=== PATIENT | female | born 1955 | race Caucasian/White ===

== ENCOUNTER 2019-11-19 17:50 | Emergency (ER) | payer OTHER ==
[~2019-11-19] VITALS: Ht 167.6 cm; Wt 54.0 kg
--- NOTE | 2019-11-19 17:50 | NUR ---
"Patient under investigation for COVID-19" protocol observed for this patient 08/08 patient came from [facility].
--- NOTE | 2019-11-19 18:23 | NUR ---
1823pm: [place] assisted living home staff Maritza notified re: list of patient's home meds. Maritza said that they will fax the list of home medicines to [facility] ER department.
--- NOTE | 2019-11-19 18:51 | NUR ---
Dr [email or web address], MSE in progress
[2019-11-19] MEDS ORDERED: MORPHINE SULFATE 4 MG/1 ML DISP.SYRIN IV ONE (19:00)
[2019-11-19] MEDS ORDERED: methylPREDNISolone SOD SUCC 125 MG/2 ML VIAL IV ONE (19:00)
[2019-11-19] MEDS ORDERED: ONDANSETRON 4 MG/2 ML VIAL IV ONE (19:00)
[2019-11-19] MEDS ORDERED: ONDANSETRON 4 MG/2 ML VIAL ONE (19:09)
[2019-11-19] MEDS ORDERED: methylPREDNISolone SOD SUCC 125 MG/2 ML VIAL ONE (19:09)
[2019-11-19] MEDS ORDERED: MORPHINE SULFATE 4 MG/1 ML DISP.SYRIN ONE (19:09)
--- NOTE | 2019-11-19 20:02 | NUR ---
Spoke with Ml from [facility] with ETA of 2100. Patient made aware. no further concerns at this time
--- NOTE | 2019-11-19 21:15 | NUR ---
Patient discharged to Assisted living facility in stable condition. Written and verbal after care instructions given. Patient verbalizes understanding of instructions. Stressed follow up or return to ER for worsening s/s. Patient A&O x4. Patient able to ambulate to [facility]
--- NOTE | 2019-11-19 21:15 | NUR ---
IV removed. Catheter intact and site benign. Pressure and 4x4 gauze applied to site. No bleeding noted.
[2019-11-19 21:19] VITALS: BP 132/83
== END 2019-11-19 21:15 ==
LOC: ER 17:50
DX: G35 Multiple sclerosis (principal); G89.29 Other chronic pain; R51 Headache; M06.9 Rheumatoid arthritis, unspecified; M19.90 Unspecified osteoarthritis, unspecified site; H54.8 Legal blindness, as defined in USA
CPT/HCPCS: 96374; 96375; 99284; J2270; J2405; J2930; A4663

== ENCOUNTER 2021-12-22 22:33 | Emergency (ER) | payer OTHER ==
[~2021-12-22] VITALS: Ht 167.6 cm; Wt 59.4 kg
[2021-12-23] MEDS ORDERED: MORPHINE SULFATE 4 MG/1 ML DISP.SYRIN ONE ×2 (00:58→02:13)
[2021-12-23] MEDS ORDERED: MORPHINE SULFATE 2 MG/1 ML DISP.SYRIN ONE ×2 (00:59→02:13)
[2021-12-23] MEDS ORDERED: MORPHINE SULFATE 10 MG/1 ML DISP.SYRIN IV ONE (01:00)
[2021-12-23] MEDS ORDERED: methylPREDNISolone SOD SUCC 125 MG/2 ML VIAL ONE (02:13)
[2021-12-23] MEDS ORDERED: methylPREDNISolone SOD SUCC 125 MG/2 ML VIAL IV ONE (02:15)
[2021-12-23] MEDS ORDERED: MORPHINE SULFATE 4 MG/1 ML DISP.SYRIN IV ONE (02:15)
--- NOTE | 2021-12-23 02:50 | NUR ---
Patient laying on gurny, playing on phone with no distress noted.
[2021-12-23] MEDS ORDERED: HYDR4TAB4 PO (03:15)
--- NOTE | 2021-12-23 03:26 | NUR ---
IV removed. Catheter intact and site benign. Pressure and 4x4 gauze applied to site. No bleeding noted.
[2021-12-23 03:28] VITALS: BP 128/88
--- NOTE | 2021-12-23 03:28 | NUR ---
Patient discharged to home in stable condition with friend taking patient home. Written and verbal after care instructions given. Patient verbalizes understanding of instructions. Stressed follow up or return to ER for worsening s/s.
== END 2021-12-23 03:29 | disposition home or self-care (01) ==
LOC: ER 22:37
DX: S20.211A Contusion of right front wall of thorax, initial encounter (principal); W01.0XXA Fall on same level from slipping, tripping and stumbling without subsequent striking against object, initial encounter; Y92.89 Other specified places as the place of occurrence of the external cause; G35 Multiple sclerosis; R32 Unspecified urinary incontinence; R15.9 Full incontinence of feces; H54.8 Legal blindness, as defined in USA; M06.9 Rheumatoid arthritis, unspecified
CPT/HCPCS: 71101; 96374; 96375; 96376; 99284; J2270 ×4; J2930; A4663

== ENCOUNTER 2022-03-22 03:35 | Emergency (ER) | payer OTHER ==
[~2022-03-22] VITALS: Ht 160 cm; Wt 64.9 kg
[~2022-03-22 03:35] MED LIST: HYDR4TAB4 PO
[2022-03-22] MEDS ORDERED: MORPHINE SULFATE 10 MG/1 ML DISP.SYRIN IV ONE (04:00)
[2022-03-22] MEDS ORDERED: MORPHINE SULFATE 2 MG/1 ML DISP.SYRIN ONE ×2 (04:19→06:04)
--- NOTE | 2022-03-22 04:37 | NUR ---
Pt being brought down to CT
[2022-03-22 05:44] LABS: HEMATOCRIT 36.8 % (31.2-41.9); MEAN CORPUSCULAR HEMOGLOBIN 31.5 uug (24.7-32.8); MEAN CORPUSCULAR VOLUME 91.9 fL (75.5-95.3); PLATELET COUNT (AUTO) 272 K/uL (179-408)
[2022-03-22 05:49] LABS: CREATININE 0.9 mg/dL (0.6-1.3); POTASSIUM 3.2 mmol/L (3.5-5.1)
[2022-03-22] MEDS ORDERED: HYDR4TAB4 PO (06:26)
[2022-03-22] MEDS ORDERED: POTASSIUM BICARBONATE/CIT AC 25 MEQ TABLET.EFF ONE (06:30)
[2022-03-22] MEDS ORDERED: MORPHINE SULFATE 4 MG/1 ML DISP.SYRIN IV ONE (06:30)
[2022-03-22] MEDS ORDERED: POTASSIUM BICARBONATE/CIT AC 25 MEQ TABLET.EFF PO ONE (06:30)
--- NOTE | 2022-03-22 06:50 | NUR ---
Pt was not able to urinate. Thomas catheter inserted aseptically and urine specimen was collected. PT tolerated well.
[2022-03-22 07:46] LABS: *BILIRUBIN,URIN NEGATIVE (NEGATIVE); *BLOOD, URINE NEGATIVE (NEGATIVE); *CLARITY,URINE CLEAR (CLEAR); *COLOR,URINE YELLOW (YELLOW); *KETONES,URINE NEGATIVE (NEGATIVE); *UROBILINOGEN,URINE 0.2 E.U./dl (NORMAL); LEUKOCYTE ESTERASE ,URINE NEGATIVE (NEGATIVE); NITRITE, URINE NEGATIVE (NEGATIVE); UGLUCOSE NEGATIVE (NEGATIVE)
--- NOTE | 2022-03-22 08:09 | NUR ---
Patient discharged to home in stable condition. Written and verbal after care instructions given. Patient verbalizes understanding of instructions. Stressed follow up or return to ER for worsening s/s.
[2022-03-22 08:25] VITALS: BP 136/87
== END 2022-03-22 08:26 | disposition home or self-care (01) ==
LOC: ER 03:49
DX: R52 Pain, unspecified (principal); E83.42 Hypomagnesemia; E87.6 Hypokalemia; H54.8 Legal blindness, as defined in USA; G35 Multiple sclerosis; R29.6 Repeated falls; M19.90 Unspecified osteoarthritis, unspecified site
CPT/HCPCS: 99284; 96374; 70450; 80048; 81003; 83735; 85025; 36415; 96376; J2270 ×3; A4663

== ENCOUNTER 2022-04-17 15:41 | Inpatient (IN) | payer OTHER ==
[~2022-04-17] VITALS: Ht 165.1 cm; Wt 62.1 kg
--- NOTE | 2022-04-17 15:56 | NUR ---
Pt BIBA BLS ambulance from home c/o headache and generalized muscle aches r/t Multiple Sclerosis history. Pt was brought in AO x 4, no signs of distress, but complaints of 10/10 headache and generalized pain all over her body. She states that she usually comes to ED and gets IV Solumedrol for this. Otherwise patient is ambulatory, continent and no other complaints. Side rails up x 2. Safety precautions in place. Dr. Patel at bedside for MSE.
[2022-04-17 16:30] LABS: HEMATOCRIT 39.3 % (31.2-41.9); MEAN CORPUSCULAR HEMOGLOBIN 31.3 uug (24.7-32.8); MEAN CORPUSCULAR VOLUME 93.5 fL (75.5-95.3); PLATELET COUNT (AUTO) 325 K/uL (179-408)
[2022-04-17 16:42] LABS: ALANINE AMINOTRANSFERASE 21 U/L (14-59); ALKALINE PHOSPHATASE 88 U/L (50-136); ASPARTATE AMINOTRANSFERASE 8 U/L (15-37); BILIRUBIN,DIRECT < 0.1 mg/dL (0.0-0.2); BILIRUBIN,TOTAL 0.2 mg/dL (0.2-1.0); CARBON DIOXIDE 27 mmol/L (21-32); CHLORIDE 105 mmol/L (98-107); CREATININE 0.7 mg/dL (0.6-1.3); GLUCOSE 110 mg/dL (74-106); TOTAL PROTEIN, SERUM 7.4 g/dL (6.4-8.2); UREA NITROGEN, BLOOD 11 mg/dL (7-18)
--- NOTE | 2022-04-17 16:43 | NUR ---
ERMD decision to admit. Per insurance policy clerk, insurance authorizes pt admission to this hospital. On hold over the phone for [employer] since 1640/for panel call.
[2022-04-17 16:49] LABS: POTASSIUM 2.7 mmol/L (3.5-5.1)
--- NOTE | 2022-04-17 17:06 | NUR ---
[facility] finally answered, paged for panel call. Waiting for [facility] OXYACETYLENE TORCH OPERATOR to call.
[2022-04-17 17:09] LABS: *BILIRUBIN,URIN NEGATIVE (NEGATIVE); *BLOOD, URINE NEGATIVE (NEGATIVE); *CLARITY,URINE CLEAR (CLEAR); *COLOR,URINE YELLOW (YELLOW); *KETONES,URINE NEGATIVE (NEGATIVE); *UROBILINOGEN,URINE 0.2 E.U./dl (NORMAL); LEUKOCYTE ESTERASE ,URINE TRACE (NEGATIVE); NITRITE, URINE NEGATIVE (NEGATIVE); PH,URINE 6.5 (5.0-8.0); UGLUCOSE NEGATIVE (NEGATIVE)
[2022-04-17] MEDS ORDERED: MORPHINE SULFATE 4 MG/1 ML DISP.SYRIN IV ONE ×3 (17:15→19:15)
[2022-04-17] MEDS ORDERED: D5LR IV ONE (17:15)
[2022-04-17] MEDS ORDERED: POTASSIUM BICARBONATE/CIT AC 25 MEQ TABLET.EFF PO ONE (17:15)
[2022-04-17] MEDS ORDERED: POTASSIUM CHLORIDE IV ONE (17:15)
[2022-04-17] MEDS ORDERED: POTASSIUM BICARBONATE/CIT AC 25 MEQ TABLET.EFF ONE (17:20)
[2022-04-17] MEDS ORDERED: MORPHINE SULFATE 4 MG/1 ML DISP.SYRIN ONE ×4 (17:20→23:05)
[2022-04-17] MEDS ORDERED: POTASSIUM CHLORIDE 100 ML ONE (17:20)
[2022-04-17 17:29] LABS: BACTERIA,URINE NONE SEEN /HPF (NONE SEEN); RBC,URINE 0-3 /HPF (0-3); SQUAMOUS EPITHELIAL CELL,UR FEW /HPF (NONE SEEN); WBC,URINE NONE SEEN /HPF (0-3)
[2022-04-17] MEDS ORDERED: methylPREDNISolone SOD SUCC 40 MG/ML VIAL IV ONE (17:45)
[2022-04-17] MEDS ORDERED: methylPREDNISolone SOD SUCC 125 MG/2 ML VIAL ONE (18:00)
--- NOTE | 2022-04-17 18:33 | NUR ---
Amna from [facility] ([phone]), called to inform that they received the request for auth. She'll be working on it and will get back to us within the next hour.
--- NOTE | 2022-04-17 19:00 | NUR ---
Receieved report from Jim KAPLAN.
[2022-04-17] MEDS ORDERED: ACETAMINOPHEN 325 MG TABLET PO PRN (19:15)
[2022-04-17] MEDS ORDERED: IV D5 1/2 NS 1000 ML 1,000 ML IV PRN (19:15)
[2022-04-17] MEDS ORDERED: ONDANSETRON 4 MG/2 ML VIAL IV PRN (19:15)
[2022-04-17] MEDS ORDERED: MAGNESIUM HYDROXIDE 30 ML LIQUID UDC PO PRN (19:15)
[2022-04-17] MEDS ORDERED: REMEDY ESSENTIAL ZINC PASTE 113 GM TP PRN (19:15)
--- NOTE | 2022-04-17 20:00 | NUR ---
Informed by Pilar from [facility] that patient will be given a bed number after shift change and that she will call back at 2029.
--- NOTE | 2022-04-17 22:40 | NUR ---
Report given to Madie KAPLAN.
[2022-04-17] MEDS ORDERED: MORPHINE SULFATE 10 MG/1 ML DISP.SYRIN IV PRN (23:00)
[2022-04-17] MEDS ORDERED: MORPHINE SULFATE 2 MG/1 ML DISP.SYRIN ONE (23:05)
[2022-04-17 23:30] VITALS: BP 144/57
--- NOTE | 2022-04-17 23:30 | NUR ---
Pt. admitted to [facility] rm 319, under care of Dr. Weathers. Belongs List completed Madie KAPLAN aware of patients arrival.
[2022-04-17] MEDS ORDERED: CEFTRIAXONE 1 G VIAL ONE (23:46)
[2022-04-18] MEDS: POTASSIUM CHLORIDE 50 ML IV SCH ×4 (00:01→05:33)
[2022-04-18] MEDS: CEFTRIAXONE 1 G in IV DEXTROSE 5% 50 ML IV SCH (00:02)
[2022-04-18] MEDS: ENOXAPARIN SODIUM 40 MG/0.4 ML DISP.SYRIN SQ SCH ×4 (00:40→21:51)
[2022-04-18] MEDS: MORPHINE SULFATE 2 MG/1 ML DISP.SYRIN IV PRN ×3 (02:36→14:36)
--- NOTE | 2022-04-18 02:41 | NUR ---
Admitted 66 yr old female with diagnosis of MS flare. Complaining for headache and body ache. On room air. IV site on R AC 18 g intact and patent. Routine admission done. Oriented pt to room. Call light in reach. Safety precaution observed. All needs attended.
[2022-04-18 04:00] VITALS: BP 120/55
[2022-04-18] MEDS: PANTOPRAZOLE SODIUM 40 MG TABLET.DR PO SCH (06:12)
[2022-04-18 07:34] LABS: MEAN CORPUSCULAR HEMOGLOBIN 31.9 uug (24.7-32.8); MEAN CORPUSCULAR VOLUME 92.5 fL (75.5-95.3); PLATELET COUNT (AUTO) 284 K/uL (179-408)
[2022-04-18 08:05] LABS: THYROID STIMULATING HORMONE 0.251 mIU/mL (0.358-3.740)
[2022-04-18] MEDS: methylPREDNISolone SOD SUCC 1,000 MG in IV DEXTROSE 5% 250 ML IV SCH (08:30)
[2022-04-18 08:39] LABS: CREATININE 0.8 mg/dL (0.6-1.3); MAGNESIUM 1.7 mg/dL (1.8-2.4); PHOSPHOROUS 3.9 mg/dL (2.5-4.9); POTASSIUM 4.2 mmol/L (3.5-5.1)
[2022-04-18] MEDS ORDERED: methylPREDNISolone SOD SUCC 125 MG/2 ML VIAL IV SCH (09:00)
[2022-04-18] MEDS ORDERED: MAGNESIUM OXIDE 400 MG TABLET PO ONE (09:15)
[2022-04-18 11:24] VITALS: BP 148/69
[2022-04-18] MEDS ORDERED: HYDROMORPHONE HCL 2 MG TABLET PO PRN (11:30)
[2022-04-18 15:23] VITALS: BP 139/68
[2022-04-18] MEDS ORDERED: AMLO10TA59 PO (15:51)
[2022-04-18] MEDS ORDERED: METH-807 PO (15:51)
[2022-04-18] MEDS ORDERED: DICY20TA11 PO (15:51)
[2022-04-18] MEDS ORDERED: GABA300C PO (15:51)
[2022-04-18] MEDS ORDERED: METO-295 PO (15:51)
[2022-04-18] MEDS ORDERED: CLON1TAB12 PO (15:51)
[2022-04-18] MEDS ORDERED: NICO-671 TD (16:15)
[2022-04-18] MEDS: NICOTINE 14 MG/24HR PATCH TD SCH (16:43)
[2022-04-18] MEDS ORDERED: AMLODIPINE 10 MG TABLET PO PRN (16:45)
[2022-04-18] MEDS ORDERED: METOCLOPRAMIDE HCL 10 MG TABLET PO PRN (16:45)
[2022-04-18] MEDS ORDERED: DICYCLOMINE HCL 20 MG TABLET PO PRN (16:45)
[2022-04-18] MEDS ORDERED: OXYC15TA2 PO (16:56)
[2022-04-18] MEDS ORDERED: OXYCODONE HCL 5 MG TABLET PO SCH (17:00)
[2022-04-18] MEDS: METHOCARBAMOL 750 MG TABLET PO SCH (17:14)
[2022-04-18] MEDS: GABAPENTIN 300 MG CAPSULE PO SCH (17:14)
[2022-04-18] MEDS ORDERED: HYDROMORPHONE HCL 2 MG TABLET PO ONE (17:15)
[2022-04-18 20:00] VITALS: BP 143/75
[2022-04-18] MEDS: CLONAZEPAM 1 MG TABLET PO SCH (21:05)
[2022-04-18] MEDS: OXYCODONE HCL 5 MG TABLET PO SCH (21:05)
[2022-04-19] MEDS: CEFTRIAXONE 1 G in IV DEXTROSE 5% 50 ML IV SCH (00:30)
[2022-04-19] MEDS: MORPHINE SULFATE 2 MG/1 ML DISP.SYRIN IV PRN ×5 (01:00→23:57)
[2022-04-19 04:00] VITALS: BP 136/57
[2022-04-19] MEDS: PANTOPRAZOLE SODIUM 40 MG TABLET.DR PO SCH (06:25)
[2022-04-19 06:44] LABS: HEMATOCRIT 37.4 % (31.2-41.9); MEAN CORPUSCULAR HEMOGLOBIN 31.6 uug (24.7-32.8); MEAN CORPUSCULAR VOLUME 93.3 fL (75.5-95.3); PLATELET COUNT (AUTO) 286 K/uL (179-408)
[2022-04-19 06:57] LABS: CREATININE 0.8 mg/dL (0.6-1.3); MAGNESIUM 1.9 mg/dL (1.8-2.4); PHOSPHOROUS 3.8 mg/dL (2.5-4.9); POTASSIUM 3.4 mmol/L (3.5-5.1)
[2022-04-19] MEDS: NICOTINE 14 MG/24HR PATCH TD SCH ×2 (08:03→20:46)
[2022-04-19] MEDS: METHOCARBAMOL 750 MG TABLET PO SCH ×3 (08:03→17:15)
[2022-04-19] MEDS: OXYCODONE HCL 5 MG TABLET PO SCH ×4 (08:03→20:46)
[2022-04-19] MEDS: CLONAZEPAM 1 MG TABLET PO SCH ×2 (08:03→20:46)
[2022-04-19] MEDS: GABAPENTIN 300 MG CAPSULE PO SCH ×3 (08:03→17:15)
[2022-04-19] MEDS: methylPREDNISolone SOD SUCC 1,000 MG in IV DEXTROSE 5% 250 ML IV SCH (08:46)
[2022-04-19] MEDS ORDERED: POTASSIUM CHLORIDE 20 MEQ POWDER PACKET PO ONE (09:30)
[2022-04-19 16:36] VITALS: BP 150/69
[2022-04-19 20:34] VITALS: BP 141/66
[2022-04-19] MEDS: ENOXAPARIN SODIUM 40 MG/0.4 ML DISP.SYRIN SQ SCH (20:52)
[2022-04-20] MEDS: CEFTRIAXONE 1 G in IV DEXTROSE 5% 50 ML IV SCH (00:18)
[2022-04-20] MEDS: MORPHINE SULFATE 2 MG/1 ML DISP.SYRIN IV PRN (03:54)
[2022-04-20 04:09] VITALS: BP 148/78
--- NOTE | 2022-04-20 05:56 | NUR ---
Slept intermittently. C/o generalized pain, morphine given and tolerated well. Pt able to ambulate. Able to make needs known. IV site intact. Will endorse to day shift.
[2022-04-20] MEDS: PANTOPRAZOLE SODIUM 40 MG TABLET.DR PO SCH (06:23)
[2022-04-20 06:39] LABS: CREATININE 0.7 mg/dL (0.6-1.3); POTASSIUM 3.8 mmol/L (3.5-5.1)
[2022-04-20] MEDS: OXYCODONE HCL 5 MG TABLET PO SCH (08:12)
[2022-04-20] MEDS: CLONAZEPAM 1 MG TABLET PO SCH (08:12)
[2022-04-20] MEDS: METHOCARBAMOL 750 MG TABLET PO SCH (08:12)
[2022-04-20] MEDS: NICOTINE 14 MG/24HR PATCH TD SCH (08:12)
[2022-04-20] MEDS: GABAPENTIN 300 MG CAPSULE PO SCH (08:13)
[2022-04-20] MEDS: methylPREDNISolone SOD SUCC 1,000 MG in IV DEXTROSE 5% 250 ML IV SCH (08:17)
[2022-04-20] MEDS ORDERED: CEPH500C2 PO (09:31)
[2022-04-20] MEDS ORDERED: METH4TAB3 PO (09:31)
--- NOTE | 2022-04-20 11:23 | NUR ---
dc orders received noted and carried out.dc instruction and education given to the pt.dc heplock per md orders,pt left the facility via left in stable condition in proper clothing
== END 2022-04-20 11:20 | disposition home or self-care (01) | DRG 59 ==
LOC: ER 15:41 → MEDSURG3 22:49
PROVIDERS: ADMIT Registered Nurse; ATTEND Registered Nurse
DX: G35 Multiple sclerosis (principal); N39.0 Urinary tract infection, site not specified; E87.6 Hypokalemia; G89.4 Chronic pain syndrome; M06.9 Rheumatoid arthritis, unspecified; M19.90 Unspecified osteoarthritis, unspecified site; E05.80 Other thyrotoxicosis without thyrotoxic crisis or storm; H54.61 Unqualified visual loss, right eye, normal vision left eye; Z79.891 Long term (current) use of opiate analgesic; R51.9 Headache, unspecified; B96.89 Other specified bacterial agents as the cause of diseases classified elsewhere; Z20.822 Contact with and (suspected) exposure to COVID-19
CPT/HCPCS: 36415; 83735; 84100; 84443; 85025; 87086; A4663; G0378; J0696; J1650; J2270; J2930; J3480; J7040; J7050

== ENCOUNTER 2022-04-25 04:46 | Emergency (ER) | payer OTHER ==
[~2022-04-25] VITALS: Ht 165.1 cm; Wt 57.6 kg
[~2022-04-25 04:46] MED LIST changes: +AMLO10TA59 PO; +CEPH500C2 PO; +CLON1TAB12 PO; +DICY20TA11 PO; +GABA300C PO; -HYDR4TAB4 PO; +METH-807 PO; +METO-295 PO; +NICO-671 TD; +OXYC15TA2 PO
[2022-04-25 05:02] LABS: *BILIRUBIN,URIN NEGATIVE (NEGATIVE); *BLOOD, URINE NEGATIVE (NEGATIVE); *CLARITY,URINE CLEAR (CLEAR); *COLOR,URINE YELLOW (YELLOW); *KETONES,URINE NEGATIVE (NEGATIVE); *UROBILINOGEN,URINE 0.2 E.U./dl (NORMAL); LEUKOCYTE ESTERASE ,URINE TRACE (NEGATIVE); NITRITE, URINE NEGATIVE (NEGATIVE); UGLUCOSE NEGATIVE (NEGATIVE)
[2022-04-25 05:14] LABS: BACTERIA,URINE NONE SEEN /HPF (NONE SEEN); RBC,URINE 0-3 /HPF (0-3); SQUAMOUS EPITHELIAL CELL,UR FEW /HPF (NONE SEEN); WBC,URINE 0-3 /HPF (0-3)
--- NOTE | 2022-04-25 05:20 | NUR ---
Pt A/O x4. NAD noted. Ambulatory with slow, steady gait.
--- NOTE | 2022-04-25 05:25 | NUR ---
Dr. Mejia at bedside. MSE in progress.
[2022-04-25] MEDS ORDERED: HYDROMORPHONE HCL 2 MG TABLET PO ONE (05:30)
[2022-04-25] MEDS ORDERED: HYDROMORPHONE HCL 2 MG TABLET ONE (05:37)
[2022-04-25] MEDS ORDERED: methylPREDNISolone SOD SUCC 125 MG/2 ML VIAL IV ONE (06:15)
[2022-04-25] MEDS ORDERED: methylPREDNISolone SOD SUCC 125 MG/2 ML VIAL ONE (06:19)
[2022-04-25 06:22] LABS: HEMATOCRIT 33.7 % (31.2-41.9); MEAN CORPUSCULAR HEMOGLOBIN 31.7 uug (24.7-32.8); PLATELET COUNT (AUTO) 229 K/uL (179-408)
[2022-04-25 06:46] LABS: BILIRUBIN,TOTAL 0.2 mg/dL (0.2-1.0); CREATININE 1.1 mg/dL (0.6-1.3); POTASSIUM 3.3 mmol/L (3.5-5.1); TOTAL PROTEIN, SERUM 6.4 g/dL (6.4-8.2)
[2022-04-25] MEDS ORDERED: HYDROMORPHONE 1 MG/1 ML DISP.SYRIN IV ONE ×2 (07:00→10:45)
[2022-04-25] MEDS ORDERED: HYDROMORPHONE 2 MG/1 ML DISP.SYRIN ONE ×2 (07:01→10:56)
[2022-04-25] MEDS ORDERED: POTASSIUM CHLORIDE 20 MEQ TAB.PRT.SR PO ONE (07:15)
[2022-04-25] MEDS ORDERED: IV NS + KCL 40 MEQ 1000 ML BAG IV ONE (07:15)
--- NOTE | 2022-04-25 07:15 | NUR ---
Report given to Michelle KAPLAN.
[2022-04-25] MEDS ORDERED: IV NS + KCL 40 MEQ 1000 ML BAG 1,000 ML IV ONE (07:48)
--- NOTE | 2022-04-25 09:05 | NUR ---
Still waiting for insurance for admission. patient sleeping in room comfortably. no pain at this time. IVF infusing with potassium additive.
--- NOTE | 2022-04-25 12:39 | NUR ---
Krystyna from [facility] has bed available at [facility] with room number 418 bed1 number for report is [phone].
--- NOTE | 2022-04-25 12:42 | NUR ---
calling number that was provided by [facility]. no answer or answering service. will call back in 15 minutes.
--- NOTE | 2022-04-25 12:58 | NUR ---
new phone number to give report changed and is [phone].
--- NOTE | 2022-04-25 13:00 | NUR ---
1245- jose called back with ETA time of 60 min. with [facility]
--- NOTE | 2022-04-25 13:09 | NUR ---
report called at this time to romy KAPLAN. receiving DrRolo is Dr. Wiley that they have documented on their end. reported ETA to EUSEBIO.
--- NOTE | 2022-04-25 13:35 | NUR ---
1375 ml from Thomas. IV stays in place.
--- NOTE | 2022-04-25 13:38 | NUR ---
transfer paperwork given to ambulance and are here to take patient.
[2022-04-25 13:42] VITALS: BP 128/72
== END 2022-04-25 13:47 | disposition short-term general hospital (02) ==
LOC: ER 04:50
DX: R33.9 Retention of urine, unspecified (principal); G35 Multiple sclerosis; E87.6 Hypokalemia; R29.6 Repeated falls; F17.210 Nicotine dependence, cigarettes, uncomplicated; Z20.822 Contact with and (suspected) exposure to COVID-19; H54.61 Unqualified visual loss, right eye, normal vision left eye; G89.4 Chronic pain syndrome; Z79.891 Long term (current) use of opiate analgesic
CPT/HCPCS: 99285; 96374; 96361; 96375; 87426; 80053; 81001; 85025; 87086; 36415; 51702; 96376; J2930; J1170 ×2; J7040; A4663; C1758

== ENCOUNTER 2022-05-29 04:28 | Emergency (ER) | payer OTHER ==
[~2022-05-29] VITALS: Ht 167.6 cm; Wt 58.1 kg
[2022-05-29 05:41] LABS: MEAN CORPUSCULAR HEMOGLOBIN 31.7 uug (24.7-32.8); MEAN CORPUSCULAR VOLUME 92.6 fL (75.5-95.3); PLATELET COUNT (AUTO) 270 K/uL (179-408)
[2022-05-29 05:58] LABS: CARBON DIOXIDE 30 mmol/L (21-32); CHLORIDE 101 mmol/L (98-107); CREATININE 0.8 mg/dL (0.6-1.3); GLUCOSE 104 mg/dL (74-106); POTASSIUM 3.4 mmol/L (3.5-5.1); UREA NITROGEN, BLOOD 3 mg/dL (7-18)
[2022-05-29 06:07] LABS: ALANINE AMINOTRANSFERASE 30 U/L (14-59); ALKALINE PHOSPHATASE 83 U/L (50-136); ASPARTATE AMINOTRANSFERASE 15 U/L (15-37); BILIRUBIN,DIRECT 0.1 mg/dL (0.0-0.2); BILIRUBIN,TOTAL 0.3 mg/dL (0.2-1.0); TOTAL PROTEIN, SERUM 6.4 g/dL (6.4-8.2)
[2022-05-29] MEDS ORDERED: MORPHINE SULFATE 4 MG/1 ML DISP.SYRIN IV ONE (06:15)
[2022-05-29] MEDS ORDERED: ONDANSETRON ODT 4 MG TAB.RAPDIS SL ONE (06:15)
[2022-05-29] MEDS ORDERED: TDAP DIPH,PERTUSS,TET VAC/PF 0.5 ML DISP.SYRIN IM ONE ×2 (06:15→06:48)
[2022-05-29] MEDS ORDERED: methylPREDNISolone SOD SUCC 125 MG/2 ML VIAL IV ONE (06:30)
[2022-05-29] MEDS ORDERED: ONDANSETRON 4 MG/2 ML VIAL ONE (06:47)
[2022-05-29] MEDS ORDERED: HYDROCORTISONE SOD SUCCINATE 100 MG/2 ML VIAL IV ONE (06:47)
[2022-05-29] MEDS ORDERED: MORPHINE SULFATE 4 MG/1 ML DISP.SYRIN ONE ×2 (06:48→08:25)
[2022-05-29] MEDS ORDERED: methylPREDNISolone SOD SUCC 1,000 MG in IV DEXTROSE 5% 250 ML IV ONE (07:30)
--- NOTE | 2022-05-29 07:45 | NUR ---
[address] HL on pt, not able to. Dr Morris ordered midline.
--- NOTE | 2022-05-29 08:18 | NUR ---
Pt ate breakfast, denies nausea at this time.
[2022-05-29] MEDS ORDERED: MORPHINE SULFATE 4 MG/1 ML DISP.SYRIN IM ONE (08:30)
--- NOTE | 2022-05-29 08:58 | NUR ---
Patient does not wish to proceed with medical care recommended by Dr. Vargas). Patient given information related to possible complications, up to and including , which could occur as a result of leaving the hospital at this time. Patient verbalizes understanding of risks involved due to leaving against medical advice. Patient has signed AMA form.
--- NOTE | 2022-05-29 08:59 | NUR ---
Pt walked out of ER w/ steady gait.
[2022-05-29 09:01] VITALS: BP 122/60
== END 2022-05-29 09:02 | disposition left against medical advice (07) ==
LOC: ER 04:33
DX: R29.6 Repeated falls (principal); G35 Multiple sclerosis; I10 Essential (primary) hypertension; Z88.8 Allergy status to other drugs, medicaments and biological substances; Z91.030 Bee allergy status; H54.8 Legal blindness, as defined in USA; G89.4 Chronic pain syndrome
CPT/HCPCS: 99285; 70450; 96374; 80076; 80048; 85025; 84484; 36415; 93005; 72125; 90715; 96372; 90471; J2405; J2270 ×2; J7040; A4663; J1720; J2930; J7050

== ENCOUNTER 2022-05-31 04:19 | Emergency (ER) | payer OTHER ==
[~2022-05-31] VITALS: Ht 167.6 cm; Wt 54.4 kg
--- NOTE | 2022-05-31 05:15 | NUR ---
Pt. walked into the ER c/o mechanical falls at home for the last three days. Pt. reports overall generalized body weakness and 9/10 body pain due to medical Hx MS. Pt. denies chest pain, n/v, SOB.
--- NOTE | 2022-05-31 07:01 | NUR ---
Pt. taken to CT via wheelchair
--- NOTE | 2022-05-31 08:05 | NUR ---
Pt c/o "whole body" pain, informed
[2022-05-31] MEDS ORDERED: HYDROCODONE/APAP 5-325MG TABLET PO ONE (08:15)
[2022-05-31] MEDS ORDERED: HYDROCODONE/APAP 5-325MG TABLET ONE (08:21)
[2022-05-31] MEDS ORDERED: OXYCODONE/APAP 5-325 MG TABLET ONE (08:27)
[2022-05-31] MEDS ORDERED: OXYCODONE/APAP 5-325 MG TABLET PO ONE (08:30)
--- NOTE | 2022-05-31 08:55 | NUR ---
Pt signed-out AMA, informed she could come back if falls continue.
--- NOTE | 2022-06-01 09:16 | NUR ---
LATE ENTRY: 05/31/22 -- 825: Wasted [place] 5/325, in [facility], wasted 0 tablets, should have been 1 tab.
== END 2022-05-31 09:03 | disposition left against medical advice (07) ==
LOC: ER 04:24
DX: R51.9 Headache, unspecified (principal); I05.0 Rheumatic mitral stenosis; R26.2 Difficulty in walking, not elsewhere classified; G89.29 Other chronic pain; H54.8 Legal blindness, as defined in USA; Z88.8 Allergy status to other drugs, medicaments and biological substances; Z91.030 Bee allergy status; M06.9 Rheumatoid arthritis, unspecified; Z79.899 Other long term (current) drug therapy
CPT/HCPCS: 70450; 72125; A4663

== ENCOUNTER 2022-06-28 19:20 | Emergency (ER) | payer OTHER ==
[~2022-06-28] VITALS: Ht 167.6 cm; Wt 58.1 kg
[~2022-06-28 19:20] MED LIST changes: -CEPH500C2 PO
--- NOTE | 2022-06-28 20:16 | NUR ---
Patient was BIB by a friend from home with c/o of being off balance and back pain x 1 month. States was seen by PMD yesterday. Currently patient is alert & oriented x4, no s/s of any distress noted. Placed back in waiting room, awaiting room assignment.
--- NOTE | 2022-06-29 01:50 | NUR ---
Dr. Reza at bedside. MSE in progress.
[2022-06-29] MEDS ORDERED: MORPHINE SULFATE 10 MG/1 ML DISP.SYRIN IM ONE (02:00)
[2022-06-29] MEDS ORDERED: ONDANSETRON HCL 4 MG TABLET PO ONE (02:00)
[2022-06-29] MEDS ORDERED: ONDANSETRON HCL 4 MG TABLET ONE (02:28)
[2022-06-29] MEDS ORDERED: MORPHINE SULFATE 4 MG/1 ML DISP.SYRIN ONE ×2 (02:29→03:44)
[2022-06-29] MEDS ORDERED: MORPHINE SULFATE 2 MG/1 ML DISP.SYRIN ONE (02:29)
[2022-06-29 02:39] LABS: HEMATOCRIT 33.4 % (31.2-41.9); MEAN CORPUSCULAR VOLUME 92.4 fL (75.5-95.3); PLATELET COUNT (AUTO) 224 K/uL (179-408)
[2022-06-29 02:46] LABS: CREATININE 0.5 mg/dL (0.6-1.3); MAGNESIUM 1.8 mg/dL (1.8-2.4); POTASSIUM 2.9 mmol/L (3.5-5.1)
[2022-06-29] MEDS ORDERED: LIDO30AD10 TP (03:30)
[2022-06-29] MEDS ORDERED: HYDR-3980 PO (03:30)
[2022-06-29] MEDS ORDERED: POTASSIUM CHLORIDE 20 MEQ TAB.PRT.SR ONE (03:36)
[2022-06-29] MEDS ORDERED: POTASSIUM BICARBONATE/CIT AC 25 MEQ TABLET.EFF PO ONE (03:45)
[2022-06-29] MEDS ORDERED: POTASSIUM CHLORIDE 20 MEQ TAB.PRT.SR PO ONE (03:45)
[2022-06-29] MEDS ORDERED: MORPHINE SULFATE 4 MG/1 ML DISP.SYRIN IM ONE (04:00)
--- NOTE | 2022-06-29 04:20 | NUR ---
Patient discharged to home in stable condition with friend. A/O x 4. NAD noted. Ambulatory with crutch asstance. All belongings with patient. Written and verbal after care instructions given. Patient verbalizes understanding of instructions. Stressed follow up or return to ER for worsening s/s.
[2022-06-29 05:09] VITALS: BP 137/80
== END 2022-06-29 04:20 | disposition home or self-care (01) ==
LOC: ER 19:20
DX: S20.219A Contusion of unspecified front wall of thorax, initial encounter (principal); S93.402A Sprain of unspecified ligament of left ankle, initial encounter; S93.401A Sprain of unspecified ligament of right ankle, initial encounter; W01.198A Fall on same level from slipping, tripping and stumbling with subsequent striking against other object, initial encounter; Y92.89 Other specified places as the place of occurrence of the external cause; E83.42 Hypomagnesemia; E87.6 Hypokalemia; R29.6 Repeated falls; Z91.030 Bee allergy status; H54.8 Legal blindness, as defined in USA; G89.29 Other chronic pain; G35 Multiple sclerosis
CPT/HCPCS: 99284; 80048; 83735; 85025; 36415; 71111; 73610 ×2; 96372; J2270 ×4; A4663; Q0162

== ENCOUNTER 2022-07-29 21:07 | Inpatient (IN) | payer OTHER ==
[~2022-07-29] VITALS: Ht 153.7 cm; Wt 58.1 kg
[~2022-07-29 21:07] MED LIST changes: +HYDR-3980 PO; +LIDO30AD10 TP
--- NOTE | 2022-07-29 21:32 | NUR ---
Dr. Raphael at [facility]. [facility] [place] [facility].
[2022-07-29] MEDS ORDERED: MORPHINE SULFATE 4 MG/1 ML DISP.SYRIN IV ONE ×2 (21:45→22:45)
[2022-07-29] MEDS ORDERED: IV NORMAL SALINE 500 ML BAG IV ONE (21:45)
[2022-07-29] MEDS ORDERED: MORPHINE SULFATE 4 MG/1 ML DISP.SYRIN ONE ×2 (21:58→22:46)
[2022-07-29 22:14] LABS: HEMATOCRIT 37.9 % (31.2-41.9); MEAN CORPUSCULAR HEMOGLOBIN 30.6 uug (24.7-32.8); MEAN CORPUSCULAR VOLUME 92.6 fL (75.5-95.3); PLATELET COUNT (AUTO) 230 K/uL (179-408)
--- NOTE | 2022-07-29 22:15 | NUR ---
PT going down for CT scan.
[2022-07-29 22:18] LABS: CARBON DIOXIDE 27 mmol/L (21-32); CHLORIDE 106 mmol/L (98-107); CREATININE 0.7 mg/dL (0.6-1.3); GLUCOSE 82 mg/dL (74-106); POTASSIUM 3.2 mmol/L (3.5-5.1); UREA NITROGEN, BLOOD 11 mg/dL (7-18)
[2022-07-29 22:23] LABS: ALANINE AMINOTRANSFERASE 17 U/L (14-59); ALKALINE PHOSPHATASE 100 U/L (50-136); ASPARTATE AMINOTRANSFERASE 22 U/L (15-37); BILIRUBIN,DIRECT < 0.1 mg/dL (0.0-0.2); BILIRUBIN,TOTAL 0.2 mg/dL (0.2-1.0)
--- NOTE | 2022-07-29 22:32 | NUR ---
PT back from CT.
[2022-07-29] MEDS ORDERED: HYDROMORPHONE 1 MG/1 ML DISP.SYRIN IV ONE (22:45)
[2022-07-29] MEDS ORDERED: MORPHINE SULFATE 2 MG/1 ML DISP.SYRIN ONE (22:47)
[2022-07-29] MEDS ORDERED: KETAMINE HCL 500 MG/10 ML INJ ONE (23:30)
[2022-07-29] MEDS ORDERED: KETAMINE HCL 500 MG/10 ML INJ IV ONE (23:30)
--- NOTE | 2022-07-30 | NUR ---
PT given vanilla pudding.
--- NOTE | 2022-07-30 02:06 | NUR ---
PT sleeping. NAD noted.
--- NOTE | 2022-07-30 04:00 | NUR ---
PT assisted to the restroom.
--- NOTE | 2022-07-30 06:04 | NUR ---
PT awake. No changes in mental status nor NAD noted. Will continue with current orders.
[2022-07-30] MEDS ORDERED: KETAMINE HCL 500 MG/10 ML INJ IV ONE ×3 (06:15→08:15)
[2022-07-30] MEDS ORDERED: POTASSIUM CHLORIDE 100 ML ONE (06:20)
[2022-07-30] MEDS ORDERED: KETAMINE HCL 500 MG/10 ML INJ ONE ×2 (06:21→06:48)
[2022-07-30] MEDS: POTASSIUM CHLORIDE 50 ML IV SCH ×2 (06:30→08:15)
--- NOTE | 2022-07-30 06:30 | NUR ---
Elena foster care case manager from [facility] gave auth to be admitted here. Paged Dr Keenan, sales operations associate panel for [employer].
--- NOTE | 2022-07-30 07:15 | NUR ---
Report given to EUSEBIO Coyle.
--- NOTE | 2022-07-30 07:30 | NUR ---
Patient resting in bed, easily arousable. No acute distress noted. Will continue to monitor.
[2022-07-30] MEDS ORDERED: MAGNESIUM SULFATE/D5W 200 ML ONE (07:57)
[2022-07-30] MEDS: MAGNESIUM SULFATE/D5W 100 ML IV SCH ×2 (08:15→09:30)
--- NOTE | 2022-07-30 09:00 | NUR ---
Patient refused ketamine for pain control.
--- NOTE | 2022-07-30 12:20 | NUR ---
AUTOMOTIVE GENERATOR REPAIRER RECEIVED PATIENT. ALERT AND ABLE TO MAKE NEEDS KNOWN. TRANSPORTED VIA WHEELCHAIR. PATIENT WAS ORIENTED TO ROOM, CALL ZAPIEN, TV, BED REMOTE AND ROOM. PATIENT IS A FALL RISK. BED ALARM IN PLACE. RUSS Rose RN
--- NOTE | 2022-07-30 12:21 | NUR ---
PATIENT DENIES PAIN AT THIS TIME. RUSS Rsoe RN
--- NOTE | 2022-07-30 12:24 | NUR ---
Patient transported to third floor room 303 acompanied by RN. All belongings brought with patient.
[2022-07-30 13:17] VITALS: BP 142/57
[2022-07-30 16:00] VITALS: BP 128/54
[2022-07-30] MEDS ORDERED: ACETAMINOPHEN 325 MG TABLET PO PRN (19:00)
[2022-07-30] MEDS ORDERED: KETOROLAC TROMETHAMINE 15 MG INJ IVP PRN (19:00)
[2022-07-30] MEDS ORDERED: methylPREDNISolone SOD SUCC 125 MG/2 ML VIAL IV SCH (19:00)
[2022-07-30] MEDS ORDERED: IV LACTATED RINGERS SOLUTION 1,000 ML IV PRN (19:00)
[2022-07-30] MEDS ORDERED: ONDANSETRON 4 MG/2 ML VIAL IV PRN (19:00)
[2022-07-30] MEDS ORDERED: methylPREDNISolone SOD SUCC 1,000 MG in IV DEXTROSE 5% 250 ML IV SCH (19:30)
[2022-07-30 20:00] VITALS: BP 126/63
[2022-07-30] MEDS: PANTOPRAZOLE SODIUM 40 MG VIAL IV SCH ×2 (20:12→21:00)
[2022-07-30] MEDS: OXYCODONE HCL 5 MG TABLET PO PRN (20:13)
--- NOTE | 2022-07-30 21:00 | NUR ---
AOx4. Pt complained of 10/10 generalized pain because of Multiple Sclerosis. Administered Oxycodone as ordered. Pt is upset because she was requesting for Morphine, informed pt that her attending physician put in an order that there will be no adjustment on pain medications. Pt refused the Lactated ringer and Solu Medrol, stated that she doesn't want it tonight. Also refused to be changed into the hospital gown and to have her skin checked for any wounds. Reiterated to her the importance of the medications and skin check. She stated that she doesn't have any wound and she was checked 12 times already today. She also stated that she wasn't provided with any food today but also stated that her dinner was not edible for her. Provided her turkey sandwich, crackers, soda, and apple juice. All needs attended. Safety precautions maintained. Will continue to monitor.
[2022-07-31 05:53] VITALS: BP 128/71
[2022-07-31] MEDS ORDERED: PANTOPRAZOLE SODIUM 40 MG TABLET.DR PO SCH (09:00)
[2022-07-31] MEDS: OXYCODONE HCL 5 MG TABLET PO PRN (10:32)
[2022-07-31 10:39] LABS: HEMATOCRIT 33.2 % (31.2-41.9); MEAN CORPUSCULAR HEMOGLOBIN 31.1 uug (24.7-32.8); MEAN CORPUSCULAR VOLUME 91.9 fL (75.5-95.3); PLATELET COUNT (AUTO) 218 K/uL (179-408)
[2022-07-31 10:57] LABS: BILIRUBIN,TOTAL 0.1 mg/dL (0.2-1.0); CREATININE 0.6 mg/dL (0.6-1.3); MAGNESIUM 1.9 mg/dL (1.8-2.4); PHOSPHOROUS 3.3 mg/dL (2.5-4.9); POTASSIUM 3.3 mmol/L (3.5-5.1); TOTAL PROTEIN, SERUM 6.1 g/dL (6.4-8.2)
[2022-07-31 11:24] LABS: THYROID STIMULATING HORMONE 0.241 mIU/mL (0.358-3.740)
[2022-07-31 11:41] VITALS: BP 112/64
--- NOTE | 2022-07-31 16:03 | NUR ---
dc orders received noted and carried out,dc instruction and education given to the pt ,clair sky per md orders,pt left the facility via private car in stable condition
== END 2022-07-31 16:07 | disposition home or self-care (01) | DRG 60 ==
LOC: ER 21:11 → MEDSURG3 07-30 11:07
PROVIDERS: ADMIT Nurse Practitioner Acute Care; ATTEND Nurse Practitioner Acute Care
DX: G35 Multiple sclerosis (principal); G89.4 Chronic pain syndrome; E87.6 Hypokalemia; F41.9 Anxiety disorder, unspecified; H54.61 Unqualified visual loss, right eye, normal vision left eye; I10 Essential (primary) hypertension; Z76.5 Malingerer [conscious simulation]; Z91.81 History of falling; Z98.890 Other specified postprocedural states; Z72.0 Tobacco use; Z20.822 Contact with and (suspected) exposure to COVID-19
CPT/HCPCS: 36415; 70450; 71045; 83735; 84100; 84443; 84484; 85025; 85730; 93005; C9113; G0378; J2270; J2930; J3475; J3480; J3490; J7040; J7050; J7120

== ENCOUNTER 2022-08-30 08:00 | Inpatient (IN) | payer OTHER ==
[~2022-08-30] VITALS: Ht 166.4 cm; Wt 58.1 kg
[2022-08-30 08:37] LABS: *BILIRUBIN,URIN NEGATIVE (NEGATIVE); *BLOOD, URINE NEGATIVE (NEGATIVE); *CLARITY,URINE CLEAR (CLEAR); *COLOR,URINE YELLOW (YELLOW); *KETONES,URINE NEGATIVE (NEGATIVE); *UROBILINOGEN,URINE 0.2 E.U./dl (NORMAL); LEUKOCYTE ESTERASE ,URINE TRACE (NEGATIVE); NITRITE, URINE NEGATIVE (NEGATIVE); UGLUCOSE NEGATIVE (NEGATIVE)
[2022-08-30 08:38] LABS: HEMATOCRIT 43.9 % (31.2-41.9); MEAN CORPUSCULAR HEMOGLOBIN 29.8 uug (24.7-32.8); MEAN CORPUSCULAR VOLUME 90.9 fL (75.5-95.3); PLATELET COUNT (AUTO) 265 K/uL (179-408)
[2022-08-30 08:45] LABS: CARBON DIOXIDE 27 mmol/L (21-32); CHLORIDE 106 mmol/L (98-107); CREATININE 0.7 mg/dL (0.6-1.3); GLUCOSE 107 mg/dL (74-106); POTASSIUM 3.5 mmol/L (3.5-5.1); UREA NITROGEN, BLOOD 6 mg/dL (7-18)
[2022-08-30] MEDS ORDERED: OXYCODONE/APAP 5-325 MG TABLET PO ONE (08:45)
[2022-08-30] MEDS ORDERED: OXYCODONE/APAP 5-325 MG TABLET ONE (08:56)
[2022-08-30 08:58] LABS: ALANINE AMINOTRANSFERASE 24 U/L (14-59); ALKALINE PHOSPHATASE 110 U/L (50-136); ASPARTATE AMINOTRANSFERASE 9 U/L (15-37); BILIRUBIN,DIRECT 0.1 mg/dL (0.0-0.2); BILIRUBIN,TOTAL 0.3 mg/dL (0.2-1.0); TOTAL PROTEIN, SERUM 7.2 g/dL (6.4-8.2)
[2022-08-30] MEDS ORDERED: MISCELLANEOUS MED XX ONE (12:00)
[2022-08-30 12:02] LABS: BACTERIA,URINE FEW /HPF (NONE SEEN); RBC,URINE 0-3 /HPF (0-3); SQUAMOUS EPITHELIAL CELL,UR FEW /HPF (NONE SEEN); WBC,URINE 0-3 /HPF (0-3)
[2022-08-30] MEDS ORDERED: methylPREDNISolone SOD SUCC 1,000 MG in IV DEXTROSE 5% 250 ML IV ONE (12:30)
[2022-08-30] MEDS ORDERED: PROCHLORPERAZINE EDISYLATE 10 MG/2 ML VIAL IV ONE (19:15)
[2022-08-30] MEDS ORDERED: HYDROMORPHONE 2 MG/1 ML DISP.SYRIN ONE (19:15)
[2022-08-30] MEDS ORDERED: HYDROMORPHONE 1 MG/1 ML DISP.SYRIN IV ONE (19:15)
[2022-08-30] MEDS ORDERED: PROCHLORPERAZINE MALEATE 5 MG TABLET ONE (19:15)
[2022-08-30] MEDS ORDERED: PROCHLORPERAZINE EDISYLATE 10 MG/2 ML VIAL ONE (19:16)
[2022-08-31] MEDS ORDERED: HYDROMORPHONE 1 MG/1 ML DISP.SYRIN IV ONE ×2 (00:15→04:30)
[2022-08-31] MEDS ORDERED: PROCHLORPERAZINE EDISYLATE 10 MG/2 ML VIAL IV ONE (00:15)
[2022-08-31] MEDS ORDERED: PROCHLORPERAZINE EDISYLATE 10 MG/2 ML VIAL ONE (00:17)
[2022-08-31] MEDS ORDERED: HYDROMORPHONE 2 MG/1 ML DISP.SYRIN ONE ×2 (00:18→05:01)
[2022-08-31] MEDS ORDERED: ONDANSETRON 4 MG/2 ML VIAL IV PRN (09:15)
[2022-08-31] MEDS ORDERED: LABETALOL HCL 100 MG/20 ML VIAL IV PRN (09:15)
[2022-08-31] MEDS ORDERED: hydrALAZINE HCL 20 MG/1 ML VIAL IV PRN (09:15)
[2022-08-31] MEDS ORDERED: ACETAMINOPHEN 325 MG TABLET PO PRN (09:15)
[2022-08-31] MEDS ORDERED: IV NS 1000 ML 1,000 ML IV SCH (09:15)
[2022-08-31] MEDS ORDERED: methylPREDNISolone SOD SUCC 125 MG/2 ML VIAL IV SCH (09:15)
[2022-08-31] MEDS: IV NS 1000 ML 1,000 ML IV PRN ×2 (10:13→20:30)
[2022-08-31] MEDS ORDERED: DICYCLOMINE HCL 20 MG TABLET PO PRN (10:45)
[2022-08-31] MEDS ORDERED: METOCLOPRAMIDE HCL 10 MG TABLET PO PRN (10:45)
[2022-08-31] MEDS ORDERED: MORPHINE SULFATE 2 MG/1 ML DISP.SYRIN ONE (10:59)
[2022-08-31] MEDS ORDERED: CLONAZEPAM 1 MG TABLET ONE (10:59)
[2022-08-31] MEDS: CLONAZEPAM 1 MG TABLET PO SCH ×2 (11:02→17:54)
[2022-08-31] MEDS: MORPHINE SULFATE 2 MG/1 ML DISP.SYRIN IVP PRN ×2 (11:06→16:22)
[2022-08-31] MEDS: NICOTINE 21 MG/24HR PATCH TD SCH ×2 (11:25→12:05)
[2022-08-31] MEDS ORDERED: GABAPENTIN 300 MG CAPSULE ONE (12:07)
[2022-08-31] MEDS ORDERED: OXYCODONE HCL 5 MG TABLET ONE (12:07)
[2022-08-31] MEDS: GABAPENTIN 300 MG CAPSULE PO SCH ×2 (12:30→17:54)
[2022-08-31] MEDS: METHOCARBAMOL 750 MG TABLET PO SCH ×2 (12:30→17:54)
[2022-08-31] MEDS: OXYCODONE HCL 5 MG TABLET PO SCH ×3 (12:31→21:52)
[2022-08-31] MEDS: methylPREDNISolone SOD SUCC 1,000 MG in IV DEXTROSE 5% 250 ML IV SCH (12:40)
[2022-08-31 14:12] VITALS: BP 130/83
[2022-08-31 16:35] VITALS: BP 140/71
[2022-08-31 20:23] VITALS: BP 142/63
[2022-08-31] MEDS: HEPARIN SODIUM,PORCINE 5,000 UNITS/ML VIAL SQ SCH (21:43)
[2022-08-31] MEDS: AMLODIPINE 10 MG TABLET PO SCH (21:44)
[2022-09-01 00:28] VITALS: BP 104/60
[2022-09-01] MEDS: MORPHINE SULFATE 2 MG/1 ML DISP.SYRIN IVP PRN ×2 (01:19→05:51)
[2022-09-01] MEDS: IV NS 1000 ML 1,000 ML IV PRN ×2 (04:00→16:08)
[2022-09-01 04:30] VITALS: BP 142/66
[2022-09-01 06:28] LABS: HEMATOCRIT 32.3 % (31.2-41.9); MEAN CORPUSCULAR HEMOGLOBIN 30.8 uug (24.7-32.8); PLATELET COUNT (AUTO) 188 K/uL (179-408)
[2022-09-01 06:47] LABS: CREATININE 0.7 mg/dL (0.6-1.3); PHOSPHOROUS 2.9 mg/dL (2.5-4.9); TOTAL PROTEIN, SERUM 5.9 g/dL (6.4-8.2)
[2022-09-01 07:00] LABS: BILIRUBIN,TOTAL 0.1 mg/dL (0.2-1.0)
[2022-09-01] MEDS: OXYCODONE HCL 5 MG TABLET PO SCH ×5 (08:44→22:02)
[2022-09-01] MEDS: METHOCARBAMOL 750 MG TABLET PO SCH ×3 (08:44→17:01)
[2022-09-01] MEDS: CLONAZEPAM 1 MG TABLET PO SCH ×2 (08:44→17:01)
[2022-09-01] MEDS: GABAPENTIN 300 MG CAPSULE PO SCH ×3 (08:44→17:01)
[2022-09-01] MEDS: HEPARIN SODIUM,PORCINE 5,000 UNITS/ML VIAL SQ SCH ×2 (08:48→21:03)
[2022-09-01] MEDS ORDERED: NICOTINE 14 MG/24HR PATCH TD SCH (09:00)
[2022-09-01] MEDS ORDERED: MORPHINE SULFATE 2 MG/1 ML DISP.SYRIN IVP PRN (11:00)
[2022-09-01 12:00] VITALS: BP 132/73
[2022-09-01] MEDS: methylPREDNISolone SOD SUCC 1,000 MG in IV DEXTROSE 5% 250 ML IV SCH (12:31)
[2022-09-01] MEDS: diphenhydrAMINE 50 MG/1 ML VIAL IV PRN ×2 (13:44→21:01)
[2022-09-01 16:00] VITALS: BP 153/73
[2022-09-01 20:00] VITALS: BP 131/75
[2022-09-01] MEDS: TRAZODONE 100 MG TABLET PO SCH (21:00)
[2022-09-01] MEDS: AMLODIPINE 10 MG TABLET PO SCH (21:01)
[2022-09-01 23:58] VITALS: BP 125/59
[2022-09-02] MEDS: MORPHINE SULFATE 4 MG/1 ML DISP.SYRIN IV PRN ×2 (00:10→04:49)
[2022-09-02] MEDS: CYCLOBENZAPRINE HCL 10 MG TABLET PO PRN ×2 (00:10→20:37)
[2022-09-02] MEDS: IV NS 1000 ML 1,000 ML IV PRN ×2 (02:58→15:09)
[2022-09-02 04:28] VITALS: BP 131/74
[2022-09-02] MEDS: diphenhydrAMINE 50 MG/1 ML VIAL IV PRN ×3 (05:50→20:43)
[2022-09-02 07:01] LABS: HEMATOCRIT 38.8 % (31.2-41.9); MEAN CORPUSCULAR HEMOGLOBIN 30.1 uug (24.7-32.8); PLATELET COUNT (AUTO) 204 K/uL (179-408)
[2022-09-02 07:27] LABS: CREATININE 0.6 mg/dL (0.6-1.3); POTASSIUM 3.5 mmol/L (3.5-5.1)
[2022-09-02 07:32] LABS: BILIRUBIN,TOTAL 0.1 mg/dL (0.2-1.0); TOTAL PROTEIN, SERUM 6.7 g/dL (6.4-8.2)
[2022-09-02 08:05] LABS: MAGNESIUM 1.9 mg/dL (1.8-2.4); PHOSPHOROUS 2.9 mg/dL (2.5-4.9)
[2022-09-02] MEDS: METHOCARBAMOL 750 MG TABLET PO SCH ×3 (08:56→16:55)
[2022-09-02] MEDS: GABAPENTIN 300 MG CAPSULE PO SCH ×3 (08:56→16:55)
[2022-09-02] MEDS: CLONAZEPAM 1 MG TABLET PO SCH ×2 (08:56→16:56)
[2022-09-02] MEDS: NICOTINE 21 MG/24HR PATCH TD SCH (08:56)
[2022-09-02] MEDS: HEPARIN SODIUM,PORCINE 5,000 UNITS/ML VIAL SQ SCH ×2 (09:03→20:38)
[2022-09-02] MEDS: OXYCODONE HCL 5 MG TABLET PO SCH ×4 (09:03→20:34)
[2022-09-02 11:54] VITALS: BP 140/68
[2022-09-02] MEDS ORDERED: REMEDY ESSENTIAL ZINC PASTE 113 GM TOP PRN (13:00)
[2022-09-02] MEDS ORDERED: methylPREDNISolone SOD SUCC 1,000 MG in IV DEXTROSE 5% 250 ML IV ONE (13:00)
[2022-09-02 15:50] VITALS: BP 151/72
[2022-09-02 20:00] VITALS: BP 136/65
[2022-09-02] MEDS: TRAZODONE 100 MG TABLET PO SCH (20:37)
[2022-09-02] MEDS: AMLODIPINE 10 MG TABLET PO SCH (20:37)
[2022-09-02] MEDS: REMEDY ESSENTIAL ZINC PASTE 113 GM TOP SCH (20:39)
[2022-09-03] VITALS: BP 131/62
[2022-09-03] MEDS: MORPHINE SULFATE 4 MG/1 ML DISP.SYRIN IV PRN ×2 (01:59→06:05)
[2022-09-03] MEDS: diphenhydrAMINE 50 MG/1 ML VIAL IV PRN ×2 (03:47→21:56)
[2022-09-03 04:00] VITALS: BP 155/79
[2022-09-03] MEDS: IV NS 1000 ML 1,000 ML IV PRN (06:00)
[2022-09-03 07:19] LABS: HEMATOCRIT 34.8 % (31.2-41.9); MEAN CORPUSCULAR HEMOGLOBIN 30.2 uug (24.7-32.8); MEAN CORPUSCULAR VOLUME 89.9 fL (75.5-95.3); PLATELET COUNT (AUTO) 172 K/uL (179-408)
[2022-09-03 07:31] LABS: CREATININE 0.7 mg/dL (0.6-1.3); POTASSIUM 3.7 mmol/L (3.5-5.1)
[2022-09-03 07:36] LABS: BILIRUBIN,TOTAL 0.2 mg/dL (0.2-1.0)
[2022-09-03] MEDS: CLONAZEPAM 1 MG TABLET PO SCH ×2 (08:53→16:47)
[2022-09-03] MEDS: GABAPENTIN 300 MG CAPSULE PO SCH ×3 (08:54→16:47)
[2022-09-03] MEDS: OXYCODONE HCL 5 MG TABLET PO SCH ×4 (08:56→20:22)
[2022-09-03] MEDS: REMEDY ESSENTIAL ZINC PASTE 113 GM TOP SCH ×2 (08:57→20:25)
[2022-09-03] MEDS: METHOCARBAMOL 750 MG TABLET PO SCH ×3 (08:57→16:49)
[2022-09-03] MEDS: NICOTINE 21 MG/24HR PATCH TD SCH (08:57)
[2022-09-03] MEDS: HEPARIN SODIUM,PORCINE 5,000 UNITS/ML VIAL SQ SCH ×2 (09:00→20:24)
[2022-09-03 11:34] VITALS: BP 126/65
[2022-09-03 15:43] VITALS: BP 142/76
[2022-09-03] MEDS ORDERED: methylPREDNISolone SOD SUCC 1,000 MG in IV DEXTROSE 5% 250 ML IV ONE (16:30)
[2022-09-03 20:00] VITALS: BP 133/80
[2022-09-03] MEDS: TRAZODONE 100 MG TABLET PO SCH (20:25)
[2022-09-03] MEDS: AMLODIPINE 10 MG TABLET PO SCH (20:30)
[2022-09-04] VITALS (7 sets, daily range): BP systolic 134–161; BP diastolic 57–79
[2022-09-04] MEDS: MORPHINE SULFATE 4 MG/1 ML DISP.SYRIN IV PRN ×2 (00:38→05:02)
[2022-09-04] MEDS: CYCLOBENZAPRINE HCL 10 MG TABLET PO PRN ×2 (00:39→22:44)
[2022-09-04] MEDS: IV NS 1000 ML 1,000 ML IV PRN ×3 (04:59→22:43)
[2022-09-04 07:09] LABS: HEMATOCRIT 36.6 % (31.2-41.9); MEAN CORPUSCULAR VOLUME 89.6 fL (75.5-95.3); PLATELET COUNT (AUTO) 194 K/uL (179-408)
[2022-09-04 07:14] LABS: BILIRUBIN,TOTAL 0.2 mg/dL (0.2-1.0); CREATININE 0.7 mg/dL (0.6-1.3); POTASSIUM 3.7 mmol/L (3.5-5.1); TOTAL PROTEIN, SERUM 6.1 g/dL (6.4-8.2)
[2022-09-04] MEDS: GABAPENTIN 300 MG CAPSULE PO SCH ×3 (08:29→16:24)
[2022-09-04] MEDS: CLONAZEPAM 1 MG TABLET PO SCH ×2 (08:29→16:25)
[2022-09-04] MEDS: diphenhydrAMINE 50 MG/1 ML VIAL IV PRN ×3 (08:29→20:40)
[2022-09-04] MEDS: OXYCODONE HCL 5 MG TABLET PO SCH ×4 (08:29→20:43)
[2022-09-04] MEDS: METHOCARBAMOL 750 MG TABLET PO SCH ×3 (08:30→16:24)
[2022-09-04] MEDS: HEPARIN SODIUM,PORCINE 5,000 UNITS/ML VIAL SQ SCH ×2 (08:31→20:40)
[2022-09-04] MEDS: NICOTINE 21 MG/24HR PATCH TD SCH (08:32)
[2022-09-04] MEDS: REMEDY ESSENTIAL ZINC PASTE 113 GM TOP SCH ×2 (08:44→21:00)
[2022-09-04] MEDS: TRAZODONE 100 MG TABLET PO SCH (20:41)
[2022-09-04] MEDS: AMLODIPINE 10 MG TABLET PO SCH (20:43)
[2022-09-05] MEDS: diphenhydrAMINE 50 MG/1 ML VIAL IV PRN ×3 (02:20→14:27)
[2022-09-05] MEDS: MORPHINE SULFATE 4 MG/1 ML DISP.SYRIN IV PRN ×2 (02:21→06:14)
[2022-09-05 04:00] VITALS: BP 102/72
[2022-09-05] MEDS: IV NS 1000 ML 1,000 ML IV PRN ×2 (06:14→13:38)
[2022-09-05 06:35] LABS: HEMATOCRIT 32.3 % (31.2-41.9); MEAN CORPUSCULAR HEMOGLOBIN 30.6 uug (24.7-32.8); MEAN CORPUSCULAR VOLUME 89.7 fL (75.5-95.3); PLATELET COUNT (AUTO) 175 K/uL (179-408)
[2022-09-05 08:30] VITALS: BP 128/76
[2022-09-05] MEDS: OXYCODONE HCL 5 MG TABLET PO SCH ×2 (08:32→12:09)
[2022-09-05] MEDS: CLONAZEPAM 1 MG TABLET PO SCH (08:32)
[2022-09-05] MEDS: METHOCARBAMOL 750 MG TABLET PO SCH ×2 (08:32→12:09)
[2022-09-05] MEDS: NICOTINE 21 MG/24HR PATCH TD SCH (08:32)
[2022-09-05] MEDS: GABAPENTIN 300 MG CAPSULE PO SCH ×2 (08:32→12:09)
[2022-09-05] MEDS: REMEDY ESSENTIAL ZINC PASTE 113 GM TOP SCH (08:33)
[2022-09-05] MEDS: HEPARIN SODIUM,PORCINE 5,000 UNITS/ML VIAL SQ SCH (08:36)
[2022-09-05 09:35] LABS: BILIRUBIN,TOTAL 0.1 mg/dL (0.2-1.0); CREATININE 0.6 mg/dL (0.6-1.3); POTASSIUM 3.8 mmol/L (3.5-5.1); TOTAL PROTEIN, SERUM 4.9 g/dL (6.4-8.2)
[2022-09-05 11:34] VITALS: BP 124/67
== END 2022-09-05 15:30 | disposition home health service (06) | DRG 59 ==
LOC: ER 08:00 → TRANSITION 08-31 09:18 → TELE3 08-31 12:54 → MEDSURG3 09-03 10:18
PROVIDERS: ADMIT Internal Medicine; ATTEND Internal Medicine
DX: G35 Multiple sclerosis (principal); H46.9 Unspecified optic neuritis; I10 Essential (primary) hypertension; H54.61 Unqualified visual loss, right eye, normal vision left eye; G47.9 Sleep disorder, unspecified; M54.12 Radiculopathy, cervical region; M50.31 Other cervical disc degeneration, high cervical region; M25.78 Osteophyte, vertebrae; R29.6 Repeated falls; R20.0 Anesthesia of skin; Z79.899 Other long term (current) drug therapy
CPT/HCPCS: 36415; 70450; 71045; 72125; 72131; 72141; 73030; 73080; 83735; 84100; 84484; 85025; 93005; A4663; G0378; J0360; J0780; J1170; J1200; J1644; J2270; J2930; J7040; J7050; J8499

== ENCOUNTER 2023-06-24 22:35 | Emergency (ER) | payer MEDICARE, OTHER ==
[~2023-06-24] VITALS: Ht 154.9 cm; Wt 58.1 kg
[2023-06-24] MEDS ORDERED: OXYCODONE/APAP 5-325 MG TABLET PO ONE (23:30)
[2023-06-24] MEDS ORDERED: methylPREDNISolone SOD SUCC 125 MG/2 ML VIAL IV ONE (23:30)
[2023-06-24] MEDS ORDERED: OXYCODONE/APAP 5-325 MG TABLET ONE (23:36)
[2023-06-24] MEDS ORDERED: methylPREDNISolone SOD SUCC 125 MG/2 ML VIAL ONE (23:36)
[2023-06-25] MEDS ORDERED: OXYCODONE/APAP 5-325 MG TABLET PO ONE (00:15)
[2023-06-25] MEDS ORDERED: HYDROMORPHONE 1 MG/1 ML DISP.SYRIN ONE (00:27)
[2023-06-25] MEDS ORDERED: OXYCODONE/APAP 5-325 MG TABLET ONE (00:29)
[2023-06-25] MEDS ORDERED: HYDROMORPHONE 1 MG/1 ML DISP.SYRIN IV ONE (00:30)
[2023-06-25 00:32] LABS: BASOPHILS # (AUTO) 0.2 K/UL (0.0-0.2); EOSINOPHILS # (AUTO) 0.1 K/uL (0.0-0.7); EOSINOPHILS % (AUTO) 1.5 % (0.0-7.0); HEMATOCRIT 38.6 % (31.2-41.9); HEMOGLOBIN 12.9 g/dL (10.9-14.3); LYMPHOCYTES # (AUTO) 1.6 K/uL (0.8-4.8); LYMPHOCYTES % (AUTO) 27.9 % (20.5-51.5); MEAN CORPUSCULAR HGB CONC 33 g/dL (32.3-35.6); MEAN CORPUSCULAR VOLUME 92.7 fL (75.5-95.3); MONOCYTES # (AUTO) 0.5 K/uL (0.1-1.30); MONOCYTES % (AUTO) 9.3 % (0.0-11.0); NEUTROPHILS # (AUTO) 3.3 K/uL (1.8-8.9); NEUTROPHILS % (AUTO) 58.3 % (38.5-71.5); PLATELET COUNT (AUTO) 306 K/uL (179-408); RED BLOOD CELL COUNT(AUTO) 4.16 MIL/uL (3.63-4.92); RED CELL DISTRIBUTION WIDTH 13.5 % (12.3-17.7); WHITE BLOOD COUNT (AUTO) 5.6 K/uL (3.8-11.8)
[2023-06-25] MEDS ORDERED: OXYC-133 PO (00:32)
[2023-06-25] MEDS ORDERED: DULO20CA PO (00:32)
[2023-06-25] MEDS ORDERED: ONDA4TAB11 PO (00:32)
[2023-06-25 00:46] LABS: DIFFERENTIAL COMMENT 1
[2023-06-25 00:52] VITALS: BP 142/80; O2SAT 99
[2023-06-25 00:54] LABS: CALCIUM 9.7 mg/dL (8.5-10.1); CARBON DIOXIDE 28 mmol/L (21-32); CHLORIDE 103 mmol/L (98-107); CREATININE 0.7 mg/dL (0.6-1.3); GLUCOSE 129 mg/dL (74-106); POTASSIUM 3.6 mmol/L (3.5-5.1); SODIUM SERUM 140 mmol/L (136-145); UREA NITROGEN, BLOOD 11 mg/dL (7-18)
[2023-06-25 01:00] LABS: ALANINE AMINOTRANSFERASE 41 U/L (14-59); ALBUMIN 3.7 g/dL (3.4-5.0); ALKALINE PHOSPHATASE 94 U/L (50-136); ASPARTATE AMINOTRANSFERASE 10 U/L (15-37); BILIRUBIN,DIRECT < 0.1 mg/dL (0.0-0.2); BILIRUBIN,TOTAL 0.4 mg/dL (0.2-1.0)
== END 2023-06-25 01:10 | disposition home or self-care (01) ==
LOC: ER 22:39
DX: G89.29 Other chronic pain (principal); M54.50 Low back pain, unspecified; F17.210 Nicotine dependence, cigarettes, uncomplicated; Z90.49 Acquired absence of other specified parts of digestive tract; Z88.8 Allergy status to other drugs, medicaments and biological substances; Z91.030 Bee allergy status; Z79.899 Other long term (current) drug therapy; Z79.2 Long term (current) use of antibiotics
CPT/HCPCS: 99284; 96374; 80076; 80048; 85025; 36415; J2930; J1170; A4606; A4663

== ENCOUNTER 2023-09-18 18:08 | Inpatient (IN) | payer MEDICARE, OTHER ==
[~2023-09-18] VITALS: Ht 165.1 cm; Wt 58.1 kg
[~2023-09-18 18:08] MED LIST changes: +DULO20CA PO; +ONDA4TAB11 PO; +OXYC-133 PO
[2023-09-18 20:16] LABS: BASOPHILS % (AUTO) 0.6 % (0.0-2.0); EOSINOPHILS # (AUTO) 0.1 K/uL (0.0-0.7); HEMATOCRIT 39.8 % (31.2-41.9); HEMOGLOBIN 13.7 g/dL (10.9-14.3); LYMPHOCYTES # (AUTO) 1.9 K/uL (0.8-4.8); LYMPHOCYTES % (AUTO) 32.6 % (20.5-51.5); MEAN CORPUSCULAR HEMOGLOBIN 30.7 uug (24.7-32.8); MEAN CORPUSCULAR HGB CONC 34 g/dL (32.3-35.6); MEAN CORPUSCULAR VOLUME 89.2 fL (75.5-95.3); MONOCYTES # (AUTO) 0.3 K/uL (0.1-1.30); MONOCYTES % (AUTO) 6.1 % (0.0-11.0); NEUTROPHILS # (AUTO) 3.4 K/uL (1.8-8.9); NEUTROPHILS % (AUTO) 59.7 % (38.5-71.5); PLATELET COUNT (AUTO) 275 K/uL (179-408); RED BLOOD CELL COUNT(AUTO) 4.47 MIL/uL (3.63-4.92); RED CELL DISTRIBUTION WIDTH 13.3 % (12.3-17.7); WHITE BLOOD COUNT (AUTO) 5.7 K/uL (3.8-11.8)
[2023-09-18] MEDS ORDERED: HYDROMORPHONE 1 MG/1 ML DISP.SYRIN ONE (20:27)
[2023-09-18 20:28] LABS: DIFFERENTIAL COMMENT 1
[2023-09-18] MEDS: HYDROMORPHONE 1 MG/1 ML DISP.SYRIN IM ONE (20:29)
[2023-09-18 20:39] LABS: ALBUMIN 4.2 g/dL (3.4-5.0); BILIRUBIN,TOTAL 0.1 mg/dL (0.2-1.0); CALCIUM 9.5 mg/dL (8.5-10.1); CREATININE 0.7 mg/dL (0.6-1.3); POTASSIUM 3.6 mmol/L (3.5-5.1); TOTAL PROTEIN, SERUM 7.4 g/dL (6.4-8.2)
[2023-09-18 20:46] LABS: *BILIRUBIN,URIN NEGATIVE (NEGATIVE); *BLOOD, URINE NEGATIVE (NEGATIVE); *CLARITY,URINE CLEAR (CLEAR); *COLOR,URINE YELLOW (YELLOW); *KETONES,URINE NEGATIVE (NEGATIVE); *PROTEIN,URINE NEGATIVE (NEGATIVE); *UROBILINOGEN,URINE 0.2 E.U./dl (NORMAL); LEUKOCYTE ESTERASE ,URINE NEGATIVE (NEGATIVE); NITRITE, URINE NEGATIVE (NEGATIVE); PH,URINE 5.5 (5.0-8.0); UGLUCOSE NEGATIVE (NEGATIVE)
[2023-09-18] MEDS ORDERED: ACETAMINOPHEN 325 MG TABLET PO PRN (22:15)
[2023-09-18] MEDS: GABAPENTIN 300 MG CAPSULE PO SCH (22:26)
[2023-09-18] MEDS: CLONAZEPAM 1 MG TABLET PO SCH (22:26)
[2023-09-18] MEDS: HYDROCODONE/APAP 10-325 MG TABLET PO PRN (23:29)
[2023-09-19] MEDS ORDERED: HYDROCODONE/APAP 10-325 MG TABLET ONE (05:27)
[2023-09-19 06:01] LABS: ALBUMIN 3.4 g/dL (3.4-5.0); BILIRUBIN,TOTAL 0.2 mg/dL (0.2-1.0); CREATININE 0.6 mg/dL (0.6-1.3); EOSINOPHILS # (AUTO) 0.1 K/uL (0.0-0.7); HEMOGLOBIN 13.1 g/dL (10.9-14.3); LYMPHOCYTES # (AUTO) 1.9 K/uL (0.8-4.8); LYMPHOCYTES % (AUTO) 41.7 % (20.5-51.5); MAGNESIUM 1.9 mg/dL (1.8-2.4); MEAN CORPUSCULAR HEMOGLOBIN 30.4 uug (24.7-32.8); MEAN CORPUSCULAR HGB CONC 34 g/dL (32.3-35.6); MEAN CORPUSCULAR VOLUME 88.4 fL (75.5-95.3); MONOCYTES # (AUTO) 0.4 K/uL (0.1-1.30); MONOCYTES % (AUTO) 9.6 % (0.0-11.0); NEUTROPHILS # (AUTO) 2.1 K/uL (1.8-8.9); NEUTROPHILS % (AUTO) 45.7 % (38.5-71.5); PLATELET COUNT (AUTO) 253 K/uL (179-408); POTASSIUM 3.9 mmol/L (3.5-5.1); RED CELL DISTRIBUTION WIDTH 13.2 % (12.3-17.7); TOTAL PROTEIN, SERUM 6.4 g/dL (6.4-8.2); WHITE BLOOD COUNT (AUTO) 4.5 K/uL (3.8-11.8)
[2023-09-19 06:02] LABS: THYROID STIMULATING HORMONE 1.076 mIU/mL (0.358-3.740)
[2023-09-19 06:03] LABS: DIFFERENTIAL COMMENT 1
[2023-09-19] MEDS: LIDOCAINE 5% PATCH TD SCH (08:26)
[2023-09-19] MEDS: DULOXETINE 20 MG CAPSULE.DR PO SCH (08:26)
[2023-09-19] MEDS: METHOCARBAMOL 750 MG TABLET PO SCH (08:26)
[2023-09-19] MEDS: PANTOPRAZOLE SODIUM 40 MG TABLET.DR PO SCH (08:28)
[2023-09-19] MEDS: HYDROMORPHONE 1 MG/1 ML DISP.SYRIN IV PRN (09:44)
[2023-09-19] MEDS: DICYCLOMINE HCL 20 MG TABLET PO PRN (13:23)
[2023-09-19] MEDS: HYDROMORPHONE 2 MG/1 ML DISP.SYRIN IV ONE (13:23)
[2023-09-19] MEDS ORDERED: LORA10TA7 PO (13:59)
[2023-09-19] MEDS ORDERED: methylPREDNISolone SOD SUCC 40 MG/ML VIAL IV SCH (15:00)
[2023-09-19] MEDS: LIDOCAINE 2%-EPI 1:100,000 20 ML VIAL IJ ONE (15:52)
[2023-09-19] MEDS: methylPREDNISolone SOD SUCC 1,000 MG in IV DEXTROSE 5% 250 ML IV SCH (16:45)
[2023-09-19 20:00] VITALS: BP 152/83; TEMP 98.5; O2SAT 95
[2023-09-19] MEDS: ONDANSETRON 4 MG/2 ML VIAL IV PRN (21:09)
[2023-09-20] MEDS: HYDROMORPHONE 2 MG/1 ML DISP.SYRIN IV PRN (00:44)
[2023-09-20 06:00] VITALS: BP 135/73; TEMP 98.6; O2SAT 95
[2023-09-20] MEDS: LORATADINE 10 MG TABLET PO PRN (11:21)
[2023-09-20] MEDS: NICOTINE 21 MG/24HR PATCH TD SCH (11:21)
[2023-09-20 11:40] VITALS: BP 162/96; TEMP 98.2; O2SAT 95
[2023-09-20] MEDS: AMLODIPINE 10 MG TABLET PO PRN (11:52)
[2023-09-20] MEDS: LIDOCAINE 5% PATCH TD ONE (11:56)
[2023-09-20] MEDS: DICYCLOMINE HCL 20 MG TABLET PO PRN (16:35)
[2023-09-20 20:37] VITALS: BP 168/68; TEMP 97.5; O2SAT 98
[2023-09-21 06:42] VITALS: BP 152/86; TEMP 98.5; O2SAT 97
[2023-09-21] MEDS: LIDOCAINE 5% PATCH TD SCH (09:32)
[2023-09-21] MEDS: OXYCODONE HCL 5 MG TABLET PO PRN (14:36)
[2023-09-21 16:07] VITALS: BP 151/86; TEMP 98.2; O2SAT 95
[2023-09-21] MEDS: MORPHINE SULFATE 4 MG/1 ML DISP.SYRIN IV PRN (16:09)
[2023-09-21 19:45] VITALS: BP 149/72; TEMP 98.2; O2SAT 96
[2023-09-22 00:05] VITALS: BP 143/73; TEMP 98.2; O2SAT 95
[2023-09-22 04:25] VITALS: BP 135/65; TEMP 97.1; O2SAT 95
[2023-09-22 07:35] VITALS: BP 125/68; TEMP 98.3; O2SAT 95
[2023-09-22 11:38] VITALS: BP 138/76; TEMP 99; O2SAT 96
[2023-09-22 16:00] VITALS: BP 133/74; TEMP 98.9; O2SAT 97
[2023-09-22 20:00] VITALS: BP 157/85; TEMP 97.8; O2SAT 97
[2023-09-23 00:40] VITALS: BP 126/67; TEMP 98; O2SAT 94
[2023-09-23 06:13] VITALS: BP 136/66; TEMP 97.9; O2SAT 95
[2023-09-23 07:43] VITALS: BP 126/66; TEMP 98.4; O2SAT 96
[2023-09-23 11:52] VITALS: BP 114/56; TEMP 98; O2SAT 95
[2023-09-23 15:55] VITALS: BP 118/63; TEMP 98.7; O2SAT 98
[2023-09-23] MEDS: GABAPENTIN 300 MG CAPSULE PO SCH (17:15)
[2023-09-23 20:00] VITALS: BP 126/61; TEMP 98.3; O2SAT 95
[2023-09-24 00:10] VITALS: BP 119/66; TEMP 98; O2SAT 96
[2023-09-24 04:00] VITALS: BP 121/66; TEMP 97.8; O2SAT 95
[2023-09-24 08:41] VITALS: BP 124/68; TEMP 98.8; O2SAT 96
[2023-09-24] MEDS: hydrOXYzine HCL 25 MG TABLET PO PRN (09:19)
[2023-09-24 11:21] VITALS: BP 145/81; TEMP 98.2; O2SAT 97
[2023-09-24] MEDS ORDERED: OXYC5TAB3 PO (11:22)
[2023-09-24] MEDS ORDERED: DICY20TA2 PO (11:22)
[2023-09-24] MEDS ORDERED: OXYC20TA42 PO ×2 (11:53→14:38)
[2023-09-24] MEDS: GABAPENTIN 300 MG CAPSULE PO SCH (13:00)
[2023-09-24 15:44] VITALS: BP 148/68; TEMP 98.2; O2SAT 95
[2023-09-24 18:49] VITALS: BP 167/87
== END 2023-09-24 19:40 | DRG 59 ==
LOC: ER 18:12 → MEDSURG3 21:00 → TELE3 09-21 12:15
PROVIDERS: ADMIT Nurse Practitioner Acute Care; ATTEND Nurse Practitioner Acute Care
PROC: 0HBKXZX Excision of Right Lower Leg Skin, External Approach, Diagnostic (ICD-10-PCS; principal; 2023-09-19)
DX: G35 Multiple sclerosis (principal); M48.54XA Collapsed vertebra, not elsewhere classified, thoracic region, initial encounter for fracture; R51.9 Headache, unspecified; E83.39 Other disorders of phosphorus metabolism; F41.9 Anxiety disorder, unspecified; G89.4 Chronic pain syndrome; Z79.891 Long term (current) use of opiate analgesic; Z85.840 Personal history of malignant neoplasm of eye; Z20.822 Contact with and (suspected) exposure to COVID-19; H53.2 Diplopia; M51.34 Other intervertebral disc degeneration, thoracic region; Z87.891 Personal history of nicotine dependence; S81.801A Unspecified open wound, right lower leg, initial encounter; X58.XXXA Exposure to other specified factors, initial encounter; Y93.9 Activity, unspecified; Y92.89 Other specified places as the place of occurrence of the external cause
CPT/HCPCS: 36415; 70450; 72125; 72131; 83735; 84100; 84443; 85025; G0378; J1170; J2270; J2405; J2930; J7050

== ENCOUNTER 2024-02-29 18:26 | Emergency (ER) | payer MEDICARE, OTHER ==
[~2024-02-29] VITALS: Ht 165.1 cm; Wt 58.1 kg
[~2024-02-29 18:26] MED LIST changes: -DICY20TA11 PO; +DICY20TA2 PO; -DULO20CA PO; -HYDR-3980 PO; +LORA10TA7 PO; -ONDA4TAB11 PO; -OXYC-133 PO; -OXYC15TA2 PO; +OXYC20TA42 PO
[2024-02-29] MEDS ORDERED: OXYCODONE HCL 5 MG TABLET ONE (21:55)
[2024-02-29] MEDS: OXYCODONE HCL 5 MG TABLET PO ONE (22:00)
[2024-03-01] MEDS ORDERED: OXYCODONE HCL 5 MG TABLET ONE (00:51)
[2024-03-01] MEDS: OXYCODONE HCL 5 MG TABLET PO ONE ×2 (01:08→06:25)
[2024-03-01 17:46] VITALS: BP 129/77; O2SAT 97
== END 2024-03-01 17:47 | disposition home or self-care (01) ==
LOC: ER 18:27
DX: G89.29 Other chronic pain (principal); M25.572 Pain in left ankle and joints of left foot; M25.571 Pain in right ankle and joints of right foot; M79.672 Pain in left foot; M79.671 Pain in right foot; F17.200 Nicotine dependence, unspecified, uncomplicated; Z90.49 Acquired absence of other specified parts of digestive tract; Z98.890 Other specified postprocedural states; Z79.899 Other long term (current) drug therapy; Z79.891 Long term (current) use of opiate analgesic; Z60.5 Target of (perceived) adverse discrimination and persecution; Z88.1 Allergy status to other antibiotic agents
CPT/HCPCS: A4606; A4663

== ENCOUNTER 2024-03-07 19:49 | Inpatient (IN) | payer MEDICARE, OTHER ==
[~2024-03-07] VITALS: Ht 165.1 cm; Wt 58.1 kg
--- NOTE | 2024-03-07 20:50 | NUR ---
pt to CT via jose a
[2024-03-07 20:55] LABS: BASOPHILS # (AUTO) 0.1 K/UL (0.0-0.2); BASOPHILS % (AUTO) 0.9 % (0.0-2.0); EOSINOPHILS # (AUTO) 0.1 K/uL (0.0-0.7); EOSINOPHILS % (AUTO) 2.1 % (0.0-7.0); HEMATOCRIT 34.4 % (31.2-41.9); HEMOGLOBIN 11.3 g/dL (10.9-14.3); LYMPHOCYTES # (AUTO) 1.6 K/uL (0.8-4.8); LYMPHOCYTES % (AUTO) 24.4 % (20.5-51.5); MEAN CORPUSCULAR HEMOGLOBIN 27.2 uug (24.7-32.8); MEAN CORPUSCULAR HGB CONC 33 g/dL (32.3-35.6); MEAN CORPUSCULAR VOLUME 82.4 fL (75.5-95.3); MONOCYTES # (AUTO) 0.6 K/uL (0.1-1.30); MONOCYTES % (AUTO) 8.9 % (0.0-11.0); NEUTROPHILS # (AUTO) 4.1 K/uL (1.8-8.9); NEUTROPHILS % (AUTO) 63.7 % (38.5-71.5); PLATELET COUNT (AUTO) 282 K/uL (179-408); RED BLOOD CELL COUNT(AUTO) 4.17 MIL/uL (3.63-4.92); RED CELL DISTRIBUTION WIDTH 16.5 % (12.3-17.7); WHITE BLOOD COUNT (AUTO) 6.5 K/uL (3.8-11.8)
[2024-03-07 20:58] LABS: DIFFERENTIAL COMMENT 1
[2024-03-07 21:03] LABS: CALCIUM 9.2 mg/dL (8.5-10.1); CARBON DIOXIDE 25 mmol/L (21-32); CHLORIDE 103 mmol/L (98-107); CREATININE 0.8 mg/dL (0.6-1.3); GLUCOSE 109 mg/dL (74-106); POTASSIUM 3.1 mmol/L (3.5-5.1); SODIUM SERUM 139 mmol/L (136-145); UREA NITROGEN, BLOOD 12 mg/dL (7-18)
[2024-03-07 21:11] LABS: ALANINE AMINOTRANSFERASE 14 U/L (14-59); ALBUMIN 3.2 g/dL (3.4-5.0); ALKALINE PHOSPHATASE 104 U/L (50-136); ASPARTATE AMINOTRANSFERASE 8 U/L (15-37); BILIRUBIN,DIRECT < 0.1 mg/dL (0.0-0.2); BILIRUBIN,TOTAL 0.3 mg/dL (0.2-1.0); TOTAL PROTEIN, SERUM 6.3 g/dL (6.4-8.2)
--- NOTE | 2024-03-07 21:23 | NUR ---
pt back from CT
[2024-03-07] MEDS ORDERED: ONDANSETRON 4 MG/2 ML VIAL ONE (22:03)
[2024-03-07] MEDS ORDERED: HYDROMORPHONE 1 MG/1 ML DISP.SYRIN ONE (22:04)
[2024-03-07] MEDS ORDERED: IV 1/2 NS + KCL 20 MEQ BAG 1,000 ML ONE (22:04)
[2024-03-07] MEDS: HYDROMORPHONE 1 MG/1 ML DISP.SYRIN IV ONE (22:07)
[2024-03-07] MEDS: ONDANSETRON 4 MG/2 ML VIAL IV ONE (22:07)
[2024-03-07] MEDS: IV NORMAL SALINE 1000 ML BAG IV ONE (22:07)
--- NOTE | 2024-03-07 22:08 | NUR ---
pt noted to be hard stick, IV meds given once PIV was inserted
--- NOTE | 2024-03-07 22:10 | NUR ---
Called [facility] to page Kelsy Encarnacion DNP.
[2024-03-07] MEDS: methylPREDNISolone SOD SUCC 125 MG/2 ML VIAL IV ONE (22:15)
[2024-03-07] MEDS: IV D5W-0.45% NS +20 KCL 1,000 ML IV ONE (22:15)
[2024-03-07] MEDS ORDERED: methylPREDNISolone SOD SUCC 125 MG/2 ML VIAL ONE (22:15)
--- NOTE | 2024-03-07 22:30 | NUR ---
VIOLET spoke with Alysha for pt's acceptance
--- NOTE | 2024-03-07 23:10 | NUR ---
report given to Mery Espinoza 3/F
[2024-03-07] MEDS ORDERED: MAGNESIUM HYDROXIDE 30 ML LIQUID UDC PO PRN (23:30)
[2024-03-07] MEDS ORDERED: HYDROCODONE/APAP 5-325MG TABLET PO PRN (23:30)
[2024-03-07] MEDS ORDERED: ONDANSETRON 4 MG/2 ML VIAL IV PRN (23:30)
[2024-03-07] MEDS ORDERED: ACETAMINOPHEN 325 MG TABLET PO PRN (23:30)
--- NOTE | 2024-03-07 23:30 | NUR ---
pt unable to provide urine sample
--- NOTE | 2024-03-08 | NUR ---
RECEIVED PATIENT FROM ED VIA [facility]. A&O X4, VS STABLE AT THIS TIME. PATIENT C/O 9/10 BACK PAIN, MD AWARE. IV SITE INTACT AND PATENT. ORIENTED PATIENT TO THE UNIT. ALL NEEDS MET AT THIS TIME. SAFETY MEASURES IMPLEMENTED.
[2024-03-08 00:46] VITALS: BP 147/68; TEMP 98.7
[2024-03-08 00:49] VITALS: TEMP 98.7
[2024-03-08] MEDS: HYDROMORPHONE 1 MG/1 ML DISP.SYRIN IV PRN (01:31)
--- NOTE | 2024-03-08 01:40 | NUR ---
RN ADMINISTERED PRN DILAUDID ORDERED BY PHYSICIAN FOR 9/10 LOWER BACK PAIN, PATIENT TOLERATED WELL. SAFETY MEASURES IMPLEMENTED.
[2024-03-08 06:01] VITALS: BP 144/75; TEMP 99; O2SAT 97
--- NOTE | 2024-03-08 06:53 | NUR ---
PATIENT HAS BILAT HEEL WOUNDS AND LEFT GREAT TOE SCAB. PICTURES TAKEN AND PUT IN THE CHART AND WOUND CARE CONSULT ORDERED. DRESSING CHANGED
[2024-03-08 07:10] LABS: BASOPHILS % (AUTO) 0.5 % (0.0-2.0); HEMATOCRIT 35.8 % (31.2-41.9); HEMOGLOBIN 11.8 g/dL (10.9-14.3); LYMPHOCYTES # (AUTO) 0.4 K/uL (0.8-4.8); LYMPHOCYTES % (AUTO) 13.2 % (20.5-51.5); MEAN CORPUSCULAR HEMOGLOBIN 27.3 uug (24.7-32.8); MEAN CORPUSCULAR HGB CONC 33 g/dL (32.3-35.6); MEAN CORPUSCULAR VOLUME 82.9 fL (75.5-95.3); MONOCYTES % (AUTO) 0.7 % (0.0-11.0); NEUTROPHILS # (AUTO) 2.9 K/uL (1.8-8.9); NEUTROPHILS % (AUTO) 85.6 % (38.5-71.5); PLATELET COUNT (AUTO) 283 K/uL (179-408); RED BLOOD CELL COUNT(AUTO) 4.32 MIL/uL (3.63-4.92); RED CELL DISTRIBUTION WIDTH 16.2 % (12.3-17.7); WHITE BLOOD COUNT (AUTO) 3.4 K/uL (3.8-11.8)
[2024-03-08 07:11] LABS: DIFFERENTIAL COMMENT 1
[2024-03-08 07:29] LABS: CREATININE 0.8 mg/dL (0.6-1.3); MAGNESIUM 1.7 mg/dL (1.8-2.4); PHOSPHOROUS 2.3 mg/dL (2.5-4.9); POTASSIUM 3.9 mmol/L (3.5-5.1)
[2024-03-08] MEDS: methylPREDNISolone SOD SUCC 40 MG/ML VIAL IV SCH (08:49)
[2024-03-08] MEDS: NICOTINE 21 MG/24HR PATCH TD SCH (08:49)
[2024-03-08] MEDS: ENOXAPARIN SODIUM 40 MG/0.4 ML DISP.SYRIN SQ SCH (09:03)
[2024-03-08] MEDS ORDERED: LIDO30AD10 TD (09:48)
[2024-03-08] MEDS ORDERED: DICY20TA11 PO (09:48)
[2024-03-08] MEDS ORDERED: OXYC20TA42 PO (09:48)
[2024-03-08] MEDS ORDERED: CLON2TAB11 PO (09:55)
--- NOTE | 2024-03-08 10:00 | NUR ---
RECEIVED PATIENT IN BED AWAKE ALERT AND ORIENTED ON ROOM AIR WITH NO SHORTNESS OF BREATH PATIENT C/O BACK PAIN MEDICATED ORDERED ASSISTED WITH REPOSITIONING CALL LIGHT AND PERSONAL BELONGINGS ARE WITHIN EASY REACH WILL CONTINUE TO OBSERVE.
[2024-03-08 11:37] VITALS: BP 145/75; TEMP 98.2; O2SAT 99
[2024-03-08] MEDS ORDERED: METHOCARBAMOL 750 MG TABLET PO PRN (13:00)
[2024-03-08] MEDS ORDERED: DICYCLOMINE HCL 20 MG TABLET PO PRN (13:00)
[2024-03-08] MEDS: NICOTINE 14 MG/24HR PATCH TD SCH (13:00)
[2024-03-08] MEDS ORDERED: METOCLOPRAMIDE HCL 10 MG TABLET PO PRN (13:00)
--- NOTE | 2024-03-08 13:00 | NUR ---
SEEN Alondra ORTIZ WITH NEW ORDERS AND NOTED
--- NOTE | 2024-03-08 13:24 | NUR ---
PATIENT ALREADY GOT 21 MG NICOTINE PATCH THIS AM
--- NOTE | 2024-03-08 13:26 | NUR ---
IV SITE IS VERY POSITIONAL VERY DIFFICULT VEINOUS ACCESS DR ORTIZ NOTIFIED WITH [employer] FOR A MIDLINE AND NOTED
[2024-03-08] MEDS: CLONAZEPAM 1 MG TABLET PO SCH (13:55)
[2024-03-08] MEDS: GABAPENTIN 300 MG CAPSULE PO SCH (13:55)
[2024-03-08] MEDS: LORATADINE 10 MG TABLET PO SCH (13:55)
[2024-03-08] MEDS: AMLODIPINE 10 MG TABLET PO SCH (13:56)
[2024-03-08] MEDS: LIDOCAINE 5% PATCH TD SCH ×2 (13:56)
[2024-03-08] MEDS: MAGNESIUM OXIDE 400 MG TABLET PO ONE (15:36)
--- NOTE | 2024-03-08 15:37 | NUR ---
MAGNESSIUM LEVEL IS 1.7 WITH NEW REPLACEMENT ORDER AND NOTED.
[2024-03-08 15:47] VITALS: BP 149/80; TEMP 97.9; O2SAT 97
--- NOTE | 2024-03-08 15:52 | NUR ---
PHOS LEVEL 2.3 WITH REPLACEMENTS AND NOTED
[2024-03-08] MEDS: NEUTRA PHOS PACKET PO ONE (16:39)
--- NOTE | 2024-03-08 18:00 | NUR ---
RESTING WITH NO C/O AT THIS TIME.
--- NOTE | 2024-03-08 19:30 | NUR ---
Patient resting in bed, AAO x4. No noted signs of distress. ESTEFANÍA midline intact and patent. No complain of pain at this time. Safety measures in place.
[2024-03-08 20:06] VITALS: BP 137/86; TEMP 98.1; O2SAT 96
[2024-03-08] MEDS: OXYCODONE HCL 5 MG TABLET PO PRN (20:12)
[2024-03-09 05:50] VITALS: BP 119/59; TEMP 98.2; O2SAT 98
[2024-03-09 07:11] LABS: CALCIUM 9.1 mg/dL (8.5-10.1); CREATININE 0.6 mg/dL (0.6-1.3); PHOSPHOROUS 2.3 mg/dL (2.5-4.9); POTASSIUM 3.7 mmol/L (3.5-5.1)
--- NOTE | 2024-03-09 07:19 | NUR ---
Slept at short intervals. Medicated for complain of back pain with good effect. Rt heel dressing changed.
[2024-03-09] MEDS ORDERED: METOCLOPRAMIDE HCL 10 MG TABLET PO PRN (07:26)
--- NOTE | 2024-03-09 07:54 | NUR ---
RECEIVED ASLEEP SEEMS COMFORTABLE AT THIS TIME CALL LIGHTS AND HER PERSONAL BELONGINGS ARE WITHIN EASY REACH WILL OBSERVE.
[2024-03-09] MEDS ORDERED: NICOTINE 21 MG/24HR PATCH TD SCH (09:00)
[2024-03-09 11:29] VITALS: BP 136/79; TEMP 98.2; O2SAT 96
--- NOTE | 2024-03-09 12:11 | NUR ---
WOUND CARE CONSULT: PT PRESENTS WITH SACRAL SCARRING AND BILATERAL HEEL ULCERS, PRESENT ON ADMISSION. DR ALLEN CALLED FOR DPM CONSULT. DISCUSSED SKIN PROTECTION WITH NURSING STAFF. IN AGREEMENT WITH PLAN OF CARE.
[2024-03-09] MEDS: DEXTROSE 5% IV SCH (12:17)
[2024-03-09] MEDS: METHYLPREDNISOLONE SOD SUCC IV SCH (12:17)
[2024-03-09] MEDS: CEphaleXIN 500 MG CAPSULE PO SCH (12:23)
[2024-03-09] MEDS: MORPHINE SULFATE 4 MG/1 ML DISP.SYRIN IV PRN (12:33)
[2024-03-09] MEDS: NEUTRA PHOS PACKET PO ONE (15:22)
--- NOTE | 2024-03-09 15:36 | NUR ---
construction ironworker helper consult note: construction ironworker helper was requested for consult due to pt's living situation. construction ironworker helper spoke to the patient a 68-year-old woman, alert and oriented x3, appeared weak and fragile. The patient reported being and having 1 son, Dakota, in [place]. Patient reported living at an independent living facility but does not recall the name, per pt she receives hospice care from [facility]. The patient reported living in a house with roommates, Chaparrita (young one) and an elderly woman. The patient stated that she has a DPOA, her girlfriends, Ivone Dobson ([phone]) and Brigette Harrison. The patient told SW to contact her rn social work from [facility] as she has her file and mostly all her information. The patient was calm and cooperative, did not report suicidal ideation, no auditory or visual hallucinations, no substance abuse only cigarettes in the past per pt's report. The patient's insight and judgement appeared somewhat impaired. construction ironworker helper called Ivone Dobson ([phone]) to gather more information in regard to the pt's life and care however the call went to voicemail. SW left a voicemail for a call back. SW spoke to Zee MAIN, in regard to the pt's discharge plan and living situation as pt wants to go back to the independent living facility with home health support however does not know the name of the facility. Per Zee MAIN, she will call [facility] to find out more about where the pt resides. TANVIR will continue to available as needed and requested and work with the pt and MD to ensure a safe and proper discharge plan.
[2024-03-09 15:47] VITALS: BP 145/76; TEMP 98.3; O2SAT 96
--- NOTE | 2024-03-09 17:58 | NUR ---
DRESSING CHANGED TO HER BILATERAL HEELS STILL AWAITING FOR DR ALLEN DPHumza PATIENT MEDICATED WITH MORPHINE ORDERED FOR PAIN MADE COMFORTABLE.
[2024-03-09 19:50] VITALS: TEMP 98.2
[2024-03-09 19:52] VITALS: TEMP 98.4
[2024-03-09 20:00] VITALS: BP 145/84; TEMP 98.2; O2SAT 95
[2024-03-10 05:50] VITALS: TEMP 98.4
--- NOTE | 2024-03-10 06:28 | NUR ---
Slept at long intervals, no noted signs of distress. Stated she had a good night sleep because morphine really works for her.
--- NOTE | 2024-03-10 07:30 | NUR ---
0730 PT LAYING IN THE BED A/OX4 ON RA NO SOB OR DISTRESS NOTED, NO COMPLAIN OF PAIN IN LUMBAR AREA. IV SITE IS INTACT AND PATENT. PUREWICK IN PLACE AND DRAINING YELLOW URINE. SAFETY MEASURES IN PLACE, CALL LIGHT IN REACH.
[2024-03-10 07:31] LABS: HEMATOCRIT 35.7 % (31.2-41.9); HEMOGLOBIN 11.7 g/dL (10.9-14.3); LYMPHOCYTES # (AUTO) 0.7 K/uL (0.8-4.8); LYMPHOCYTES % (AUTO) 8.6 % (20.5-51.5); MEAN CORPUSCULAR HEMOGLOBIN 27.2 uug (24.7-32.8); MEAN CORPUSCULAR HGB CONC 33 g/dL (32.3-35.6); MEAN CORPUSCULAR VOLUME 83.2 fL (75.5-95.3); MONOCYTES # (AUTO) 0.2 K/uL (0.1-1.30); MONOCYTES % (AUTO) 2.2 % (0.0-11.0); NEUTROPHILS % (AUTO) 89.2 % (38.5-71.5); PLATELET COUNT (AUTO) 298 K/uL (179-408); RED BLOOD CELL COUNT(AUTO) 4.29 MIL/uL (3.63-4.92); RED CELL DISTRIBUTION WIDTH 16.9 % (12.3-17.7); WHITE BLOOD COUNT (AUTO) 7.9 K/uL (3.8-11.8)
[2024-03-10 07:40] LABS: DIFFERENTIAL COMMENT 1
[2024-03-10 07:47] LABS: CALCIUM 9.6 mg/dL (8.5-10.1); CREATININE 0.6 mg/dL (0.6-1.3); MAGNESIUM 2.1 mg/dL (1.8-2.4); PHOSPHOROUS 3.2 mg/dL (2.5-4.9); POTASSIUM 4.4 mmol/L (3.5-5.1)
[2024-03-10 11:08] VITALS: BP 128/69; TEMP 97.5; O2SAT 98
[2024-03-10] MEDS: METHYLPREDNISOLONE SOD SUCC IV SCH (12:41)
[2024-03-10] MEDS: DEXTROSE 5% IV SCH (12:41)
[2024-03-10 15:46] VITALS: BP_SYST 136; BP_SYST 138; BP_DIAS 52; BP_DIAS 72; TEMP 97.7; TEMP 97.8; O2SAT 95; O2SAT 98
--- NOTE | 2024-03-10 18:51 | NUR ---
1711 Morphine was administered for pain 04/15 R: pain 03/16 No dressing change performed, endorsed to the manager shift
[2024-03-10 19:00] VITALS: BP 136/75; TEMP 98.8; O2SAT 95
[2024-03-10] MEDS: MUPIROCIN 2% OINT 22 GM TUBE TP SCH (19:10)
[2024-03-11 06:00] VITALS: BP 143/85; TEMP 97.9; O2SAT 98
[2024-03-11 07:11] LABS: BASOPHILS % (AUTO) 0.2 % (0.0-2.0); HEMATOCRIT 31.9 % (31.2-41.9); HEMOGLOBIN 10.6 g/dL (10.9-14.3); LYMPHOCYTES # (AUTO) 0.4 K/uL (0.8-4.8); LYMPHOCYTES % (AUTO) 6.6 % (20.5-51.5); MEAN CORPUSCULAR HEMOGLOBIN 27.9 uug (24.7-32.8); MEAN CORPUSCULAR HGB CONC 33 g/dL (32.3-35.6); MEAN CORPUSCULAR VOLUME 83.6 fL (75.5-95.3); MONOCYTES # (AUTO) 0.2 K/uL (0.1-1.30); MONOCYTES % (AUTO) 3.1 % (0.0-11.0); NEUTROPHILS % (AUTO) 90.1 % (38.5-71.5); PLATELET COUNT (AUTO) 295 K/uL (179-408); RED BLOOD CELL COUNT(AUTO) 3.82 MIL/uL (3.63-4.92); RED CELL DISTRIBUTION WIDTH 16.4 % (12.3-17.7); WHITE BLOOD COUNT (AUTO) 6.7 K/uL (3.8-11.8)
[2024-03-11 07:20] LABS: DIFFERENTIAL COMMENT 1
[2024-03-11 07:25] LABS: CALCIUM 9.1 mg/dL (8.5-10.1); CREATININE 0.8 mg/dL (0.6-1.3); MAGNESIUM 2.2 mg/dL (1.8-2.4); PHOSPHOROUS 3.4 mg/dL (2.5-4.9); POTASSIUM 4.1 mmol/L (3.5-5.1)
[2024-03-11 11:10] VITALS: BP 148/75; TEMP 97.7; O2SAT 96
--- NOTE | 2024-03-11 12:21 | NUR ---
With discharge order to ARU, accepted.
--- NOTE | 2024-03-11 12:21 | NUR ---
A+Ox4, no acute respiratory distress noted, c/o back pain, oxycodone 20mg given per pt's request, kept clean and dry, repositioned for comfort.
[2024-03-11] MEDS: methylPREDNISolone SOD SUCC 500 MG in IV DEXTROSE 5% 100 ML IV SCH (12:45)
[2024-03-11] MEDS: ARGININE/GLUTAMINE/CALCIUM BMB 1 EACH POWD.PACK PO SCH (13:00)
--- NOTE | 2024-03-11 14:27 | NUR ---
Discharged to ARU
== END 2024-03-11 14:30 | DRG 551 ==
LOC: ER 20:16 → MEDSURG3 22:56
PROVIDERS: ADMIT Nurse Practitioner Acute Care; ATTEND Nurse Practitioner Acute Care
PROC: 05HC33Z Insertion of Infusion Device into Left Basilic Vein, Percutaneous Approach (ICD-10-PCS; principal; 2024-03-08)
DX: S32.019A Unspecified fracture of first lumbar vertebra, initial encounter for closed fracture (principal); L89.613 Pressure ulcer of right heel, stage 3; L89.623 Pressure ulcer of left heel, stage 3; E44.1 Mild protein-calorie malnutrition; L03.115 Cellulitis of right lower limb; S32.029A Unspecified fracture of second lumbar vertebra, initial encounter for closed fracture; W06.XXXA Fall from bed, initial encounter; Y92.89 Other specified places as the place of occurrence of the external cause; G35 Multiple sclerosis; Z66 Do not resuscitate; E86.0 Dehydration; E87.6 Hypokalemia; E88.09 Other disorders of plasma-protein metabolism, not elsewhere classified; F17.210 Nicotine dependence, cigarettes, uncomplicated; G89.29 Other chronic pain; H54.61 Unqualified visual loss, right eye, normal vision left eye; D17.24 Benign lipomatous neoplasm of skin and subcutaneous tissue of left leg; Z79.899 Other long term (current) drug therapy; M84.48XD Pathological fracture, other site, subsequent encounter for fracture with routine healing
CPT/HCPCS: 36415; 71045; 72131; 72192; 73630; 73700; 83735; 84100; 84484; 85025; 85730; 93005; A4606; A4663; A6209; G0378; J1170; J1650; J2270; J2405; J2919; J3490; J7040; J7050

== ENCOUNTER 2024-03-11 15:46 | Inpatient (IN) | payer MEDICARE, OTHER ==
[~2024-03-11] VITALS: Ht 165.1 cm; Wt 58.1 kg
[~2024-03-11 15:46] MED LIST changes: -CLON1TAB12 PO; +CLON2TAB11 PO; +DICY20TA11 PO; -DICY20TA2 PO; +LIDO30AD10 TD
[2024-03-11] MEDS ORDERED: CLONAZEPAM 0.5 MG TABLET PO SCH (17:00)
[2024-03-11] MEDS: GABAPENTIN 300 MG CAPSULE PO SCH (17:33)
[2024-03-11] MEDS: CEphaleXIN 500 MG CAPSULE PO SCH (17:33)
[2024-03-11] MEDS: CLONAZEPAM 1 MG TABLET PO SCH (17:33)
[2024-03-11] MEDS: OXYCODONE HCL 5 MG TABLET PO PRN (17:36)
[2024-03-11 20:54] VITALS: BP 126/78; TEMP 97.8; O2SAT 97
[2024-03-11] MEDS: MUPIROCIN 2% OINT 22 GM TUBE TP SCH (22:12)
[2024-03-11] MEDS: OXYCODONE/APAP 5-325 MG TABLET PO ONE ×2 (22:25→22:30)
[2024-03-12 06:31] VITALS: BP 162/84; TEMP 97.7; O2SAT 95
[2024-03-12] MEDS: LORATADINE 10 MG TABLET PO SCH (08:11)
[2024-03-12] MEDS: AMLODIPINE 10 MG TABLET PO SCH (08:11)
[2024-03-12] MEDS: NICOTINE 14 MG/24HR PATCH TD SCH (08:11)
[2024-03-12] MEDS: LIDOCAINE 5% PATCH TD SCH (08:11)
[2024-03-12] MEDS: ENOXAPARIN SODIUM 40 MG/0.4 ML DISP.SYRIN SQ SCH (08:12)
[2024-03-12] MEDS: ARGININE/GLUTAMINE/CALCIUM BMB 1 EACH POWD.PACK PO SCH (09:00)
[2024-03-12] MEDS: methylPREDNISolone SOD SUCC 500 MG in IV DEXTROSE 5% 100 ML IV SCH (13:13)
[2024-03-12] MEDS: OXYCODONE/APAP 5-325 MG TABLET PO ONE (15:11)
[2024-03-12] MEDS ORDERED: CLONAZEPAM 1 MG TABLET PO SCH (16:00)
[2024-03-12 16:29] VITALS: BP 148/80; TEMP 97.7; O2SAT 97
[2024-03-12 20:19] VITALS: BP 127/69; TEMP 98; O2SAT 96
[2024-03-13 06:02] VITALS: BP 118/78; TEMP 98.4; O2SAT 97
[2024-03-13 16:01] VITALS: BP 134/69; TEMP 97.6; O2SAT 97
[2024-03-13 20:00] VITALS: BP 153/78; TEMP 97.8; O2SAT 98
[2024-03-13] MEDS: SULFAMETH/TRIMETH 800/160 MG TABLET PO SCH (21:09)
[2024-03-14 06:00] VITALS: BP 152/78; TEMP 97.8; O2SAT 98
[2024-03-14] MEDS: MAGNESIUM HYDROXIDE 30 ML LIQUID UDC PO PRN (06:11)
[2024-03-14 15:46] VITALS: BP 154/78; TEMP 98.4; O2SAT 97
[2024-03-14 15:48] VITALS: BP 121/74; O2SAT 97
[2024-03-14 19:00] VITALS: BP 144/77; TEMP 98.3; O2SAT 97
[2024-03-15 06:00] VITALS: BP 135/65; TEMP 98.5; O2SAT 96
[2024-03-15 15:11] VITALS: BP 126/63; TEMP 98.2; O2SAT 99
[2024-03-15 20:15] VITALS: BP 111/74; TEMP 97.3; O2SAT 99
[2024-03-15] MEDS: OXYCODONE HCL 5 MG TABLET PO PRN (20:52)
[2024-03-16 05:32] VITALS: BP 136/76; TEMP 98.8; O2SAT 100
[2024-03-16 20:00] VITALS: BP 123/68; TEMP 99.2; O2SAT 92
[2024-03-17 04:00] VITALS: BP 150/52; TEMP 98.3; O2SAT 98
[2024-03-17 15:50] VITALS: BP 135/72; TEMP 98.2; O2SAT 100
[2024-03-17 22:30] VITALS: BP 132/75; TEMP 98.7; O2SAT 100
[2024-03-18 06:00] VITALS: BP 124/64; TEMP 98; O2SAT 99
[2024-03-18 06:59] LABS: BASOPHILS % (AUTO) 0.2 % (0.0-2.0); EOSINOPHILS # (AUTO) 0.1 K/uL (0.0-0.7); EOSINOPHILS % (AUTO) 0.7 % (0.0-7.0); HEMATOCRIT 32.3 % (31.2-41.9); HEMOGLOBIN 10.3 g/dL (10.9-14.3); LYMPHOCYTES # (AUTO) 1.6 K/uL (0.8-4.8); LYMPHOCYTES % (AUTO) 16.8 % (20.5-51.5); MEAN CORPUSCULAR HEMOGLOBIN 26.8 uug (24.7-32.8); MEAN CORPUSCULAR HGB CONC 32 g/dL (32.3-35.6); MEAN CORPUSCULAR VOLUME 84.3 fL (75.5-95.3); MONOCYTES # (AUTO) 0.7 K/uL (0.1-1.30); MONOCYTES % (AUTO) 6.9 % (0.0-11.0); NEUTROPHILS # (AUTO) 7.1 K/uL (1.8-8.9); NEUTROPHILS % (AUTO) 75.4 % (38.5-71.5); PLATELET COUNT (AUTO) 283 K/uL (179-408); RED BLOOD CELL COUNT(AUTO) 3.83 MIL/uL (3.63-4.92); RED CELL DISTRIBUTION WIDTH 17.5 % (12.3-17.7); WHITE BLOOD COUNT (AUTO) 9.5 K/uL (3.8-11.8)
[2024-03-18 07:17] LABS: DIFFERENTIAL COMMENT 1
[2024-03-18 07:22] LABS: THYROID STIMULATING HORMONE 1.562 mIU/mL (0.358-3.740)
[2024-03-18 07:51] LABS: ALBUMIN 2.7 g/dL (3.4-5.0); BILIRUBIN,TOTAL 0.3 mg/dL (0.2-1.0); CALCIUM 8.5 mg/dL (8.5-10.1); CREATININE 0.7 mg/dL (0.6-1.3); PHOSPHOROUS 3.4 mg/dL (2.5-4.9); POTASSIUM 4.2 mmol/L (3.5-5.1); TOTAL PROTEIN, SERUM 5.7 g/dL (6.4-8.2)
[2024-03-18 15:09] VITALS: BP 108/62; TEMP 97.8; O2SAT 93
[2024-03-18 19:00] VITALS: BP 98/59; TEMP 99.4; O2SAT 98
[2024-03-19 06:00] VITALS: BP 123/59; TEMP 98.2; O2SAT 93
[2024-03-19] MEDS: CALCIUM CARB/VITAMIN D 500MG-200UNITS TABLET PO SCH (08:16)
[2024-03-19] MEDS: AMLODIPINE 5 MG TABLET PO SCH (08:16)
[2024-03-19] MEDS: METOPROLOL SUCCINATE XL 25 MG TAB.SR.24H PO SCH (08:17)
[2024-03-19 20:00] VITALS: BP 105/52; TEMP 98.8; O2SAT 98
[2024-03-19] MEDS: ATORVASTATIN 10 MG TABLET PO SCH (20:24)
[2024-03-20 06:00] VITALS: BP 137/71; TEMP 98.4; O2SAT 95
[2024-03-20 08:29] VITALS: BP 116/69; TEMP 97.5; O2SAT 98
[2024-03-20 10:30] LABS: *BILIRUBIN,URIN NEGATIVE (NEGATIVE); *BLOOD, URINE NEGATIVE (NEGATIVE); *CLARITY,URINE CLEAR (CLEAR); *COLOR,URINE YELLOW (YELLOW); *KETONES,URINE NEGATIVE (NEGATIVE); *PROTEIN,URINE NEGATIVE (NEGATIVE); *UROBILINOGEN,URINE 0.2 E.U./dl (NORMAL); LEUKOCYTE ESTERASE ,URINE TRACE (NEGATIVE); NITRITE, URINE NEGATIVE (NEGATIVE); UGLUCOSE NEGATIVE (NEGATIVE)
[2024-03-20 10:38] LABS: BACTERIA,URINE FEW /HPF (NONE SEEN); SQUAMOUS EPITHELIAL CELL,UR FEW /HPF (NONE SEEN)
[2024-03-20 11:31] VITALS: BP 109/61; TEMP 98.8; O2SAT 98
[2024-03-20 16:15] VITALS: BP 118/61; TEMP 98.3; O2SAT 99
[2024-03-20 22:20] VITALS: BP 141/68; TEMP 98.1; O2SAT 97
[2024-03-21 05:34] LABS: *BILIRUBIN,URIN NEGATIVE (NEGATIVE); *BLOOD, URINE NEGATIVE (NEGATIVE); *CLARITY,URINE CLEAR (CLEAR); *COLOR,URINE YELLOW (YELLOW); *KETONES,URINE NEGATIVE (NEGATIVE); *PROTEIN,URINE NEGATIVE (NEGATIVE); *UROBILINOGEN,URINE 0.2 E.U./dl (NORMAL); LEUKOCYTE ESTERASE ,URINE NEGATIVE (NEGATIVE); NITRITE, URINE NEGATIVE (NEGATIVE); UGLUCOSE NEGATIVE (NEGATIVE)
[2024-03-21 06:53] VITALS: BP 128/72; TEMP 98.2; O2SAT 99
[2024-03-21 16:00] VITALS: BP 119/64; TEMP 98.8; O2SAT 100
[2024-03-21 22:13] VITALS: BP 117/73; TEMP 98.1; O2SAT 99
[2024-03-22 04:27] VITALS: BP 109/62; TEMP 98.2; O2SAT 98
[2024-03-22 06:34] LABS: BASOPHILS % (AUTO) 0.7 % (0.0-2.0); EOSINOPHILS # (AUTO) 0.1 K/uL (0.0-0.7); EOSINOPHILS % (AUTO) 0.9 % (0.0-7.0); HEMATOCRIT 31.4 % (31.2-41.9); HEMOGLOBIN 10.2 g/dL (10.9-14.3); LYMPHOCYTES # (AUTO) 1.5 K/uL (0.8-4.8); LYMPHOCYTES % (AUTO) 25.8 % (20.5-51.5); MEAN CORPUSCULAR HEMOGLOBIN 27.7 uug (24.7-32.8); MEAN CORPUSCULAR HGB CONC 33 g/dL (32.3-35.6); MONOCYTES # (AUTO) 0.7 K/uL (0.1-1.30); MONOCYTES % (AUTO) 12.5 % (0.0-11.0); NEUTROPHILS # (AUTO) 3.6 K/uL (1.8-8.9); NEUTROPHILS % (AUTO) 60.1 % (38.5-71.5); PLATELET COUNT (AUTO) 297 K/uL (179-408); RED CELL DISTRIBUTION WIDTH 17.5 % (12.3-17.7)
[2024-03-22 06:57] LABS: DIFFERENTIAL COMMENT 1
[2024-03-22 07:12] LABS: ALBUMIN 2.5 g/dL (3.4-5.0); BILIRUBIN,TOTAL 0.3 mg/dL (0.2-1.0); CALCIUM 8.9 mg/dL (8.5-10.1); CREATININE 0.5 mg/dL (0.6-1.3); MAGNESIUM 2.2 mg/dL (1.8-2.4); PHOSPHOROUS 4.6 mg/dL (2.5-4.9); POTASSIUM 3.7 mmol/L (3.5-5.1); TOTAL PROTEIN, SERUM 6.1 g/dL (6.4-8.2)
[2024-03-22] MEDS: CYANOCOBALAMIN 1000 MCG/ML VIAL IM SCH (08:18)
[2024-03-22 16:00] VITALS: BP 123/68; TEMP 99.4; O2SAT 99
[2024-03-22 20:18] VITALS: BP 132/67; TEMP 97.9; O2SAT 98
[2024-03-23 11:38] VITALS: BP 124/70; TEMP 98
[2024-03-23 16:00] VITALS: BP 118/89; TEMP 98.2; O2SAT 98
[2024-03-23 19:00] VITALS: BP 134/67; TEMP 98.2; O2SAT 96
[2024-03-24 09:00] VITALS: BP 101/43
[2024-03-24] MEDS: MUPIROCIN 2% OINT 22 GM TUBE TP SCH (09:43)
== END 2024-03-24 17:35 | DRG 560 ==
PROVIDERS: ADMIT Physical Medicine & Rehabilitation Pain Medicine; ATTEND Physical Medicine & Rehabilitation Pain Medicine
PROC: 05HC33Z Insertion of Infusion Device into Left Basilic Vein, Percutaneous Approach (ICD-10-PCS; principal; 2024-03-13)
DX: M80.08XD Age-related osteoporosis with current pathological fracture, vertebra(e), subsequent encounter for fracture with routine healing (principal); D68.59 Other primary thrombophilia; L97.419 Non-pressure chronic ulcer of right heel and midfoot with unspecified severity; L97.429 Non-pressure chronic ulcer of left heel and midfoot with unspecified severity; E44.0 Moderate protein-calorie malnutrition; E87.29 Other acidosis; F11.20 Opioid dependence, uncomplicated; L03.115 Cellulitis of right lower limb; G35 Multiple sclerosis; E86.0 Dehydration; Z91.81 History of falling; H54.61 Unqualified visual loss, right eye, normal vision left eye; Z79.899 Other long term (current) drug therapy; M20.42 Other hammer toe(s) (acquired), left foot; M20.41 Other hammer toe(s) (acquired), right foot; D50.9 Iron deficiency anemia, unspecified; E53.8 Deficiency of other specified B group vitamins; E78.5 Hyperlipidemia, unspecified; E88.09 Other disorders of plasma-protein metabolism, not elsewhere classified; F32.A Depression, unspecified; F41.9 Anxiety disorder, unspecified; G89.4 Chronic pain syndrome; M21.371 Foot drop, right foot; M21.372 Foot drop, left foot; I10 Essential (primary) hypertension; R62.7 Adult failure to thrive; Z87.891 Personal history of nicotine dependence; Z88.8 Allergy status to other drugs, medicaments and biological substances; Z91.030 Bee allergy status
CPT/HCPCS: 36415; 83550; 83735; 84100; 84443; 85025; A4663; A6209; A6213; J1650; J2919; J3420

== ENCOUNTER 2024-03-29 00:31 | Emergency (ER) | payer MEDICARE, OTHER ==
[~2024-03-29] VITALS: Ht 165.1 cm; Wt 58.1 kg
[~2024-03-29 00:31] MED LIST changes: -LIDO30AD10 TP
[2024-03-29] MEDS ORDERED: CEPH500C2 PO (01:47)
[2024-03-29] MEDS ORDERED: OXYC10TA49 PO ×2 (01:47→01:48)
[2024-03-29] MEDS ORDERED: NEOMY/BACITRA/POLYMYXIN B OINT UD PACKET TP ONE (02:11)
[2024-03-29] MEDS ORDERED: CEphaleXIN 500 MG CAPSULE ONE (02:11)
[2024-03-29] MEDS ORDERED: OXYCODONE HCL 5 MG TABLET ONE (02:12)
[2024-03-29] MEDS: CEphaleXIN 500 MG CAPSULE PO ONE (02:13)
[2024-03-29] MEDS: OXYCODONE HCL 5 MG TABLET PO ONE (02:15)
[2024-03-29] MEDS: NEOMY/BACITRA/POLYMYXIN B OINT UD PACKET TP ONE (02:15)
[2024-03-29 03:39] VITALS: BP 106/44; TEMP 97; O2SAT 100
== END 2024-03-29 03:00 | disposition home or self-care (01) ==
LOC: ER 00:37
DX: S90.822A Blister (nonthermal), left foot, initial encounter (principal); S90.821A Blister (nonthermal), right foot, initial encounter; L89.629 Pressure ulcer of left heel, unspecified stage; L89.619 Pressure ulcer of right heel, unspecified stage; F17.200 Nicotine dependence, unspecified, uncomplicated; Z98.890 Other specified postprocedural states; Z90.49 Acquired absence of other specified parts of digestive tract; Z79.899 Other long term (current) drug therapy; Z79.891 Long term (current) use of opiate analgesic; Z60.2 Problems related to living alone; X58.XXXA Exposure to other specified factors, initial encounter; Y93.89 Activity, other specified; Y92.89 Other specified places as the place of occurrence of the external cause; Y99.8 Other external cause status
CPT/HCPCS: A4606; A4663

== ENCOUNTER 2025-03-08 22:21 | Emergency (ER) | payer MEDICARE, OTHER ==
[~2025-03-08] VITALS: Ht 165.1 cm; Wt 53.5 kg
[~2025-03-08 22:21] MED LIST changes: +CEPH500C2 PO
[2025-03-08 23:06] LABS: *BILIRUBIN,URIN NEGATIVE (NEGATIVE); *BLOOD, URINE NEGATIVE (NEGATIVE); *CLARITY,URINE CLEAR (CLEAR); *COLOR,URINE YELLOW (YELLOW); *KETONES,URINE NEGATIVE (NEGATIVE); *PROTEIN,URINE NEGATIVE (NEGATIVE); *UROBILINOGEN,URINE 0.2 E.U./dl (NORMAL); LEUKOCYTE ESTERASE ,URINE NEGATIVE (NEGATIVE); NITRITE, URINE NEGATIVE (NEGATIVE); UGLUCOSE NEGATIVE (NEGATIVE)
[2025-03-08 23:07] LABS: PLATELET COUNT (AUTO) 225 K/uL (179-408); RED BLOOD CELL COUNT(AUTO) 4.12 MIL/uL (3.63-4.92); RED CELL DISTRIBUTION WIDTH 13.3 % (12.3-17.7); WHITE BLOOD COUNT (AUTO) 6.4 K/uL (3.8-11.8)
[2025-03-08] MEDS ORDERED: ONDANSETRON 4 MG/2 ML VIAL ONE (23:11)
[2025-03-08] MEDS ORDERED: MORPHINE SULFATE 2 MG/1 ML DISP.SYRIN ONE (23:12)
[2025-03-08 23:16] LABS: CREATININE 0.6 mg/dL (0.6-1.3); SODIUM SERUM 142.0 mmol/L (136-145); UREA NITROGEN, BLOOD 8.0 mg/dL (7-18)
[2025-03-08 23:22] LABS: ASPARTATE AMINOTRANSFERASE 14.0 U/L (15-37); TOTAL PROTEIN, SERUM 6.7 g/dL (6.4-8.2)
[2025-03-08] MEDS: ONDANSETRON 4 MG/2 ML VIAL IV ONE (23:22)
[2025-03-08] MEDS: MORPHINE SULFATE 2 MG/1 ML DISP.SYRIN IV ONE (23:22)
[2025-03-09] MEDS ORDERED: ONDANSETRON 4 MG/2 ML VIAL ONE ×2 (01:58→06:56)
[2025-03-09] MEDS ORDERED: MORPHINE SULFATE 2 MG/1 ML DISP.SYRIN ONE (01:58)
[2025-03-09] MEDS: ONDANSETRON 4 MG/2 ML VIAL IV ONE ×2 (02:11→07:07)
[2025-03-09] MEDS: MORPHINE SULFATE 2 MG/1 ML DISP.SYRIN IV ONE (02:11)
[2025-03-09] MEDS ORDERED: HYDROMORPHONE 1 MG/1 ML DISP.SYRIN ONE (06:56)
[2025-03-09] MEDS: HYDROMORPHONE 1 MG/1 ML DISP.SYRIN IV ONE (07:06)
[2025-03-09 12:08] VITALS: BP 140/79
[2025-03-09 13:30] VITALS: BP 140/79; TEMP 97.9; O2SAT 97
== END 2025-03-09 13:31 ==
LOC: ER 22:24
DX: R10.84 Generalized abdominal pain (principal); R11.0 Nausea; F17.200 Nicotine dependence, unspecified, uncomplicated; F32.A Depression, unspecified; G89.29 Other chronic pain; Z79.899 Other long term (current) drug therapy; Z88.6 Allergy status to analgesic agent; Z88.7 Allergy status to serum and vaccine; Z90.49 Acquired absence of other specified parts of digestive tract; Z91.030 Bee allergy status; Z87.39 Personal history of other diseases of the musculoskeletal system and connective tissue; Z87.2 Personal history of diseases of the skin and subcutaneous tissue; Z85.840 Personal history of malignant neoplasm of eye
CPT/HCPCS: 36415; 71045; 83605; 83690; 84484; 85025; 87040; A4606; A4663; J1171; J2270; J2405

== ENCOUNTER 2025-03-31 17:45 | Emergency (ER) | payer MEDICARE, OTHER ==
[~2025-03-31] VITALS: Ht 165.1 cm; Wt 51.3 kg
[2025-03-31] MEDS ORDERED: PANT40TA49 PO (18:05)
[2025-03-31] MEDS ORDERED: DOCU100T2 PO (18:05)
[2025-03-31] MEDS ORDERED: DIPH-1062 PO (18:05)
[2025-03-31] MEDS ORDERED: POLY17PO4 PO (18:05)
[2025-03-31] MEDS ORDERED: ZINC56.713 TP (18:05)
[2025-03-31] MEDS ORDERED: CLON1TAB12 PO (18:05)
[2025-03-31] MEDS ORDERED: CYAN-10 SQ (18:05)
[2025-03-31] MEDS ORDERED: OXYC10TA49 PO (18:05)
[2025-03-31] MEDS ORDERED: HYDROMORPHONE 2 MG/1 ML DISP.SYRIN ONE (18:33)
[2025-03-31] MEDS ORDERED: ONDANSETRON ODT 4 MG TAB.RAPDIS ONE (18:33)
[2025-03-31] MEDS ORDERED: diphenhydrAMINE 25 MG CAP PO ONE (18:34)
[2025-03-31] MEDS: HYDROMORPHONE 1 MG/1 ML DISP.SYRIN IM ONE (18:35)
[2025-03-31] MEDS: diphenhydrAMINE 25 MG CAP PO ONE (18:35)
[2025-03-31] MEDS: ONDANSETRON ODT 4 MG TAB.RAPDIS SL ONE (18:35)
[2025-03-31 18:36] LABS: PLATELET COUNT (AUTO) 350 K/uL (179-408); RED BLOOD CELL COUNT(AUTO) 3.93 MIL/uL (3.63-4.92); RED CELL DISTRIBUTION WIDTH 13.5 % (12.3-17.7); WHITE BLOOD COUNT (AUTO) 6.0 K/uL (3.8-11.8)
[2025-03-31 18:48] LABS: CREATININE 0.9 mg/dL (0.6-1.3); SODIUM SERUM 141.0 mmol/L (136-145); UREA NITROGEN, BLOOD 9.0 mg/dL (7-18)
[2025-04-01 07:00] VITALS: BP 109/66
[2025-04-01 14:38] VITALS: BP 112/68; TEMP 97.7; O2SAT 97
== END 2025-04-01 14:18 ==
LOC: ER 17:54
DX: G89.4 Chronic pain syndrome (principal); M54.2 Cervicalgia; M25.511 Pain in right shoulder; F11.20 Opioid dependence, uncomplicated; F17.200 Nicotine dependence, unspecified, uncomplicated; F41.9 Anxiety disorder, unspecified; I10 Essential (primary) hypertension; Z79.899 Other long term (current) drug therapy; Z85.840 Personal history of malignant neoplasm of eye; Z88.6 Allergy status to analgesic agent; Z88.7 Allergy status to serum and vaccine; Z90.49 Acquired absence of other specified parts of digestive tract; Z91.030 Bee allergy status; Z91.81 History of falling; Z87.39 Personal history of other diseases of the musculoskeletal system and connective tissue; Z87.2 Personal history of diseases of the skin and subcutaneous tissue
CPT/HCPCS: 99285; 80048; 83735; 85025; 73030; 96372; Q0163; J1171; 36415; A4606; A4663; Q0162